=== PATIENT | female | born 1945 | race Caucasian/White ===

== ENCOUNTER 2017-01-13 09:19 | Inpatient (IN) ==
--- NOTE | 2017-01-13 10:01 | Emergency Department Note ---
Sherie Rankin Hilary, am scribing for, and in the presence of, Marlon Martinez MD 09: 51. Michelle Rankin James D, MD, personally performed the services described in this documentation, ascribed by Erlinda Rehman in my presence, and it is both accurate and complete . Arrival - Arrival Chief Complaint: Non-Specific Stated Complaint: dialysis graft problem; no urinary output ED Nursing Triage Note: Pt arrived via ems with complaint of unable to walk, generalized weakness, and no urinary output. Pt reports near syncope episode. pt states she was just here 2 days ago and diagnosed with uti. Mode of Arrival: Stretcher Limitations: No Limitations Source: Patient, Family, RN Notes Reviewed Time Seen by Provider: 01/13/17 09:39 - History of Present Illness HPI Narrative: Pt is a 71 y/o white female brought into the ED via EMS for c/o weakness which onset 2 days ago. Pt was seen in the ED 2 days ago and diagnosed with a UTI. Pt states that both of her arms are going numb, she cant feel her fingertips and she cant pick up operator her legs. She confirms falling on the front porch 5 days ago, decreased urinary output and vomiting but denies injury. No other complaints or problems stated in the ED. Onset (ago): day(s) Consistency: constant Severity: mild Severity scale (1-10): 1 Quality: other (numbness) Allergies/Adverse Reactions: Allergies Allergy/AdvReac Type Severity Reaction Status Date / Time No Known Allergies Allergy Verified 01/11/17 16:15 Home Medications: Home Medications Medication Instructions Recorded Confirmed Type Albuterol Sulfate [Proair HFA] 2 puff INH Q4HR 03/25/16 07/24/16 History Glimepiride [Amaryl] 2 mg PO DAILY 03/25/16 07/24/16 History Ipratropium/Albuterol Inhaler 1 puff INH QID 03/25/16 07/24/16 History [Combivent Respimat Inhaler] amLODIPine [Norvasc] 10 mg PO DAILY 03/25/16 07/24/16 History HYDROcodone/ACETAMIN 7.5-325 1 tablet PO Q4H PRN #45 tablet 07/05/16 07/24/16 Rx [[place] 7.5-325] Calcitriol [Rocaltrol] 0.25 mcg PO DAILY #30 capsule 07/30/16 Rx Furosemide Tab [Lasix Tab] 80 mg PO BID DIURETIC #60 tablet 07/30/16 Rx Heparin Inj 2,000 unit IV WITH DIALYSIS PRN #0 07/30/16 Rx vial Levalbuterol Neb [Xopenex Neb] 0.63 mg RESP TX RT Q4H PRN #0 07/30/16 Rx Levalbuterol Neb [Xopenex Neb] 1.25 mg RESP TX RT Q6H #1 07/30/16 Rx applicator Losartan [Cozaar] 50 mg PO DAILY #30 tablet 07/30/16 Rx Pravastatin [Pravachol] 20 mg PO BEDTIME #30 tablet 07/30/16 Rx Tiotropium Inhalation [Spiriva 18 mcg INH DAILY #1 07/30/16 07/24/16 Rx Handihaler] Amoxicillin/Clav Tab [Augmentin 875 mg PO BID #20 tablet 01/11/17 Rx Tab] Meclizine [Antivert] 25 mg PO QID PRN #20 tablet 01/11/17 Rx Review of System - Review of System 12 point system: reviewed and no additional remarkable complaints except as stated - Review of System Constitutional: Present: weakness. Absent: fever Gastrointestinal: Present: nausea, vomiting Genitourinary female: Absent: other (decreased urine output) Neurological: Present: weakness, other (numbness in both arms and legs) Medical,Surgical,& Family Hx - Medical History Cardio: History of: Hypertension No history of: CHF, [place] Psychological: History of: Depression, Psychiatric Problems (Panic attacks) Neurology: No history of: Brain Aneurysm, Cerebrovascular Accident, Seizures HEENT: History of: Eye Problem (had cataract surgery left and right eye) Endocrine: History of: Diabetes Mellitus (NIDDM) Rheumatology: History of;: Rheumatoid Arthritis Respiratory: History of: COPD, Obstructive Sleep Apnea, Pneumonia Renal: History of: Renal Problems Gastrointestinal: History of: GERD No history of: Bowel Obstruction, Clostridium Difficile, Crohn's Disease, Diverticulitis/ Diverticulosis, Esophageal Varices, Hemorrhoids, Hepatitis, Liver Problems, Ulcerative Colitis Other: History of: Skin Problems No history of: Anaphylaxis, Cancer - Surgical History Thoracic Surgeries: Patient denies;: Organ Transplant Neurologic Surgeries: Patient denies: Brain Aneurysm Abdominal Surgeries: Surgical HX of: Abdominal Surgery (25 years ago), Colonoscopy, Hernia Repair (25 years ago) Reproductive Surgeries: Surgical HX of;: Hysterectomy (1974) Patient denies;: Section Orthopedic Surgeries: Patient denies;: Total Hip Replacement, Total Knee Replacement - Family History Family History: Reports;: Family Cancer (brother), Family Diabetes (mother), Family Hypertension (mother) Denies;: Family Anesthesia Reaction, Family Heart Disease, Family Psychiatric Problems, Family Stroke - Social History Smoking Status: Never smoker Frequency of Alcohol Use: None Type of Drug Use: None Exam Physical Examination: GENERAL: This is a well-nourished, well-developed in no apparent distress. VITAL SIGNS: Temperature: 98.0 Pulse: 75 Respiratory: 15 Blood Pressure: 152/ 75 O2 Sat: 100 HEENT: Head is normocephalic and atraumatic. Pupils are equally round and reactive to light. Extraocular movement are intact. Oropharynx is benign with moist mucous membranes. Abrasion overlying the left TMJ area. NECK: Neck is soft and supple without tenderness. There are no masses. There is no lymphadenopathy. LUNGS: Lungs are clear to auscultation bilaterally. Chest rises symmetrically. There is no chest wall tenderness. CV: Heart is regular rate and rhythm without murmurs, rubs, or gallops. ABDOMEN: Abdomen is soft, non-tender to palpation. There are no abnormal masses palpated. There is no organomegaly. Bowel sounds are present and active. SKIN: Skin is warm and dry. No rash. EXTREMITIES: Patient has full range of motion without tenderness. There is no pedal edema. NEUROLOGIC: Awake, alert, and oriented x4. Cranial nerves II through XII are grossly intact. Motor function is 3/5-4/5 in all extremities. Deep tendon reflexes are 2+ and bilaterally equal. PSYCHIATRIC: Normal affect. Normal mood. Vital Signs: Vital Signs Temperature 98.0 F 01/13/17 09:20 Pulse Rate 65 01/13/17 13:30 Respiratory Rate 16 01/13/17 13:30 Blood Pressure 125/69 01/13/17 13:30 O2 Sat by Pulse Oximetry 100 01/13/17 13:30 Course - Consultations Consultation #1: Discussed with hospitalist. Patient will be admitted to their service. Time: 13:21 Results - Labs CBC & BMP: 01/13/17 10:13 01/13/17 10:13 Lab Results: I have reviewed the patients labs Labs: Laboratory Tests 01/13/17 10:13 Sodium 137 Potassium 3.7 Chloride 97 L Carbon Dioxide 28 Anion Gap 15.7 H BUN 51 H Creatinine 8.30 H Calcium 8.3 L - Diagnostic Findings Procedure: CT: report reviewed by me (HEAD: No acute intracranial abnormality demonstrated. Probable chronic microvascular ischemic change and colume loss. Chronic right maxillary sinus disease. FACIAL BONES: No acute facial bone fracture demonstrated), MRI: pending, report reviewed by me (Scans are degraded by motion artifact. 1.6mm anterolisthesis of C4 relationship to C5. No definite fracture is identified. This finding is probably consistent with the multilevel DDD as above. No definite spinal cord pathology is identified. 12mm Tornwaldt cyst. ) Disposition Clinical Impression: Generalized weakness, Multiple falls, End-stage renal disease on hemodialysis Case discussed with: patient Disposition: Still a Patient Condition: Stable
[2017-01-13 10:24] LABS: Basophils # 0.1 10*3/uL (0.0-0.2); Basophils % 0.6 % (0.0-0.8); Eosinophils # 0.2 10*3/uL (0.0-0.87); Eosinophils % 2.3 % (0.00-10.9); Hematocrit 36.7 VOL% (35.7-47.0); Hemoglobin 12.5 GM/DL (12.0-16.0); Immature Granulocytes % 0.3 %; Immature Granulocytes Absolute 0.03 #; Lymphocytes # 2.5 10*3/uL (1.4-4.0); Lymphocytes % 25.1 % (21.3-54.2); Mean Corpuscular HGB Conc 34.1 GM/DL (32-36); Mean Corpuscular Hemoglobin 30 PG (27-34); Mean Corpuscular Volume 88.2 FL (87-102); Mean Platelet Volume 10.1 FL (9.6-12.0); Monocytes # 0.8 10*3/uL (0.11-0.8); Monocytes % 7.9 % (1.7-12.7); Neutrophils # 6.4 10*3/uL (1.4-7.4); Neutrophils % 63.8 % (38.7-73.9); Platelet Count 190 T/CUMM (130-400); Red Blood Count 4.16 MC/CUMM (3.8-5.5); Red Cell Distribution Width 17.2 % (9.3-17.3); White Blood Count 10.1 T/CUMM (4-12)
--- NOTE | 2017-01-13 10:26 | CT Report ---
CT head/brain wo con Indication: Fall, head injury Comparison: CT brain dated January 11, 2017 Technique: Multiple axial tomographic images of the brain were obtained without the use of intravenous contrast. Findings: Midline structures are nondisplaced. There is no convincing evidence of acute intracranial hemorrhage . Moderate global volume loss present. Moderate periventricular and subcortical hypoattenuation noted which is nonspecific but consistent with chronic microvascular ischemic change. Demyelinating process and vasculitis less likely considerations. Chronic complete opacification of the right maxillary sinus with changes of chronic osteitis. Atherosclerotic calcifications demonstrated. IMPRESSION: No acute intracranial abnormality demonstrated. Probable chronic microvascular ischemic change and volume loss. Chronic right maxillary sinus disease. The CT exam was performed using one or more of the following dose reduction techniques: Automated exposure control, adjustment of the mA and/or kV according to patient size, or use of iterative reconstruction technique. PROCEDURE INTERPRETED AT [facility] DEPARTMENT OF RADIOLOGY Final Report Signed by: Dr Josue Anguiano
--- NOTE | 2017-01-13 10:29 | CT Report ---
CT facial bones wo con Indication: Left jaw pain status post fall Comparison: None Technique: Multiple axial tomographic images of the facial bones were obtained without the use of intravenous contrast. Coronal and sagittal reformatted images provided. Findings: Diffuse osteopenia. Chronic complete opacification the right maxillary sinus with chronic osteitis. No acute facial bone fracture. IMPRESSION: No acute facial bone fracture demonstrated. Chronic right maxillary sinus disease. The CT exam was performed using one or more of the following dose reduction techniques: Automated exposure control, adjustment of the mA and/or kV according to patient size, or use of iterative reconstruction technique. PROCEDURE INTERPRETED AT [facility] DEPARTMENT OF RADIOLOGY Final Report Signed by: Dr Josue Anguiano
--- NOTE | 2017-01-13 10:35 | CT Report ---
Exam: CT cervical spine without contrast Date: 01/13/2017 Comparison: 01/11/2017 Reason: Fall with upper and lower extremity numbness, neck trauma Technique: Axial images of the cervical spine were obtained without the use of contrast. Sagittal and coronal reformatted images were also acquired. Total DLP is 342.20 mGy*cm. Findings: 2.2 mm anterolisthesis of C4 relationship to C5 compared to 1.6 mm on the previous exam. The scans are more degraded by motion artifact but no definite fracture or spinal cord pathology identified. Sclerosis with osteophytes. No acute findings at the lung apices. Vascular calcifications with aberrant right subclavian artery. Persistent diffuse enlargement of the thyroid gland. At C2-C3, no neuroforaminal narrowing or spinal canal stenosis is identified. At C3-C4, no disc protrusion or spinal stenosis with moderate left foraminal stenosis. At C4-C5, osteophyte/disc complex which contacts the thecal sac. No spinal stenosis with moderate left foraminal stenosis. At C5-C6, osteophyte/disc complex which contacts the thecal sac. No spinal stenosis with minimal left foraminal stenosis. At C6-C7, no neuroforaminal narrowing or spinal canal stenosis is identified. At C7-T1, no neuroforaminal narrowing or spinal canal stenosis is identified. Impression: Unfortunately the scans are more degraded by motion artifact. 2.2 mm anterolisthesis of C4 relationship to C5 compared to 1.6 mm on the previous exam. This finding could be related to the multilevel DDD. It is difficult to exclude possible ligamentous injury. If symptoms persist, MRI may be helpful for further evaluation. This CT exam was performed using one or more of the following dose reduction techniques: Automatic exposure control, adjustment of the MA and/or KV according to patient size, or use of iterative reconstruction technique. PROCEDURE INTERPRETED AT [facility] DEPARTMENT OF RADIOLOGY Final Report Signed by: Dr. Sierra Berumen
[2017-01-13 10:47] LABS: Calcium 8.3 MG/DL (8.5-10.1); Osmolality,Calculated 286.8 MOS/KG (273-304); Potassium 3.7 MMOL/L (3.5-5.1)
--- NOTE | 2017-01-13 12:54 | Magnetic Resonance Report ---
MRI of the cervical spine without contrast. Technique: Sagittal T2, sagittal T2 fat-sat, sagittal T1, axial T2 and axial gradient echo sequences of the cervical spine were performed without contrast. Scans were obtained on a 1.5 Iza magnet. Clinical history: Recent fall with upper and lower extremity numbness, abnormal CT Comparison: CT cervical spine 01/13/2017, 01/11/2017 Findings: Motion artifact limits the exam. 1.6 mm anterolisthesis of C4 relationship to C5. No acute fracture or obvious ligamentous injury is identified. No definite spinal cord pathology is noted. 12 mm nasopharyngeal cyst. Degenerative changes are noted with diffuse disc degeneration. The craniocervical junction is unremarkable. C2-3: No disc protrusion, spinal stenosis, or foraminal stenosis. C3-4: No disc protrusion, spinal or spinal stenosis with moderate left foraminal stenosis. C4-5: Diffuse osteophyte/disc complex which contacts the thecal sac. No spinal stenosis with moderate left foraminal stenosis. C5-6: Osteophyte/disc complex which contacts the thecal sac. No spinal stenosis with minimal left foraminal stenosis. C6-7: No disc protrusion, spinal stenosis, or foraminal stenosis. C7-T1: No disc protrusion, spinal stenosis, or foraminal stenosis. Impression: Unfortunately the scans are degraded by motion artifact. 1.6 mm anterolisthesis of C4 relationship to C5. No definite fracture is identified. This finding is probably consistent with the multilevel DDD as above noted. No definite spinal cord pathology is identified. 12 mm Tornwaldt cyst. PROCEDURE INTERPRETED AT [facility] DEPARTMENT OF RADIOLOGY Final Report Signed by: Dr. Sierra Berumen
[2017-01-13] MEDS ORDERED: ONDANSETRON 4 MG/2 ML VIAL IV PRN (13:50)
[2017-01-13] MEDS ORDERED: ACETAMINOPHEN 325 MG TABLET PO PRN (13:50)
[2017-01-13] MEDS ORDERED: MORPHINE 2 MG/1 ML SYRINGE IV PRN (13:50)
[2017-01-13] MEDS: ALBUTEROL 1.25 MG/3 ML NEB RESP TX SCH ×3 (14:00→23:45)
[2017-01-13] MEDS ORDERED: GLUCAGON 1 MG VIAL IM PRN (14:17)
[2017-01-13] MEDS ORDERED: DEXTROSE 50% 25 GM/50 ML SYRINGE IV PRN (14:17)
--- NOTE | 2017-01-13 14:24 | Hospitalist History & Physical ---
<Guru Rodriguez - Last Filed: 01/13/17 14:56> Assessment and Plan (1) End-stage renal disease on hemodialysis Status: Acute Assessment and plan: Patient scheduled for hemodialysis on Monday and Monday. She reports last hemodialysis treatment on Monday of this week. We will consult nephrology to assist in the management of the patient's hemodialysis during the clinical encounter. Current Visit: Yes (2) Generalized weakness Status: Acute Assessment and plan: Upon interview, the family reported multiple falls in recent months. They report that the patient sustained her most recent fall on Monday. In addition, they report that the patient has profound weakness to both her upper and lower torso. The patient's strength is rated 2/5 in both lower upper and lower extremity. We will consult physical and Occupational Therapy to evaluate and assist during the clinical encounter. Current Visit: Yes (3) Hypertension Problem details: Controlled on current regimen. Continue. Status: Chronic Assessment and plan: Upon review of the patient's medical record, the patient had been previously seen in the ED on yesterday for the same complaints. During that encounter the patient was noted to be hypotensive. The patient's medications have been reviewed. Blood pressure parameters have been given. We will monitor blood pressures closely during the clinical encounter. Current Visit: No (4) Transient confusion Status: Acute Assessment and plan: The family reported a gradual change in patient's mental status in recent months. They reported that the patient has been "slipping in recent months". In addition, they report that the patient's mental status has worsened since her fall on Monday. The patient was recently seen in the ED on yesterday for a fall. The patient was subsequently diagnosed with urinary tract infection and empiric antibiotic coverage was initiated. At that time, the patient was advised to stay for further evaluation however, the patient refused. CT head, face, neck were essentially unremarkable. MRI was obtained this morning in the ED which was essentially unremarkable also. Upon review of the patient's medication, the patient was noted to have several agents that could possibly attribute to confusion. We will hold all potentially sedative agents. We will consult neurology to evaluate. Per family report the patient's baseline is moderately confused. Current Visit: No History of Present Illness Chief complaint: Generalized weakness History of present illness: This is a chronically ill 71-year-old female that presented to the ED at [facility] via EMS this morning for the evaluation of generalized weakness. The patient has a medical history significant for hypertension, [id number] diabetes mellitus, chronic obstructive pulmonary disease, depression, panic attacks, rheumatoid arthritis, obstructive sleep apnea, pneumonia, and gastroesophageal reflux disease. Patient has a surgical history significant for colonoscopy, hernia repair, and hysterectomy. The patient reported the onset of symptoms 2 days prior to presentation. Upon review of the medical record, the patient had a recent encounter for the above complaints on yesterday in which she was evaluated advised that she needs to be admitted and refused inpatient admission. The daughter is present at bedside and served as historian during the history taking session. Per daughter report, the patient has sustained multiple falls in recent weeks. She reports that the patient has experienced a gradual change in her mental status in recent months however, the patient's mental status has become worse in recent days. The patient currently undergoes dialysis for end-stage renal disease at a dialysis center in [facility]. The daughter reported that the patient had finished her dialysis treatment 2 days ago and started experiencing some dizziness. The daughter alerted the dialysis staff who then in turn suggested that she take her mother to the ED for further evaluation. On yesterday, the daughter reported that she transported the patient to [place] for evaluation of her AV fistula. She reported that the patient generally voids however the did not avoid any on yesterday. She became alarmed and called for EMS for emergency assistance. She reported that the patient failed to void throughout the night however reported a very small amount prior to EMS presentation. The patient was subsequently transferred to [facility] for continuation of care. The patient was assessed at the time of ED encounter. Chloride 97, BUN 51, creatinine 8.30, hemoglobin A1c 7.1, calcium 8.3, triglycerides 180, cholesterol 229. CT face, cervical spine, and he was essentially unremarkable. MRI of the cervical spine reported 1.6 mm anterolisthesis of C4 relationship to C5 however no definite fracture was identified. After brief discussion with both Dr. Martinez and Dr. Miller, the patient will be admitted to the hospitalist service for continuation of care. Home medications have been reviewed and reconciled. CODE STATUS discussed; patient is FULL CODE. Home Medications Medication Instructions Recorded Confirmed Type Albuterol Sulfate [Proair HFA] 2 puff INH Q4HR 03/25/16 01/13/17 History Glimepiride [Amaryl] 2 mg PO DAILY 03/25/16 01/13/17 History Ipratropium/Albuterol Inhaler 1 puff INH QID 03/25/16 01/13/17 History [Combivent Respimat Inhaler] amLODIPine [Norvasc] 10 mg PO DAILY 03/25/16 01/13/17 History Calcitriol [Rocaltrol] 0.25 mcg PO DAILY #30 capsule 07/30/16 01/13/17 Rx Furosemide Tab [Lasix Tab] 80 mg PO BID DIURETIC #60 tablet 07/30/16 01/13/17 Rx Levalbuterol Neb [Xopenex Neb] 0.63 mg RESP TX RT Q4H PRN #0 07/30/16 01/13/17 Rx Levalbuterol Neb [Xopenex Neb] 1.25 mg RESP TX RT Q6H #1 07/30/16 01/13/17 Rx applicator Pravastatin [Pravachol] 20 mg PO BEDTIME #30 tablet 07/30/16 01/13/17 Rx Tiotropium Inhalation [Spiriva 18 mcg INH DAILY #1 07/30/16 01/13/17 Rx Handihaler] Meclizine [Antivert] 25 mg PO QID PRN #20 tablet 01/11/17 01/13/17 Rx Amoxicillin Cap/Tab 250 mg PO BID 01/13/17 01/13/17 History Calcium Acetate [Phoslo] 1,334 mg PO TID W/MEALS 01/13/17 01/13/17 History Lidocaine/Prilocaine Cream [Emla] 1 applic TOP DAILY 01/13/17 01/13/17 History Montelukast Sodium 10 mg PO DAILY 01/13/17 01/13/17 History Prorenal D 1 tablet PO DAILY 01/13/17 01/13/17 History Tramadol HCl [Tramadol Tab] 50 mg PO BID PRN 01/13/17 01/13/17 History Valsartan [Diovan] 160 mg PO DAILY 01/13/17 01/13/17 History Allergies Allergy/AdvReac Type Severity Reaction Status Date / Time No Known Allergies Allergy Verified 01/11/17 16:15 Medical,Surgical,& Family Hx - Medical History Cardio: History of: Hypertension No history of: CHF, [place] Psychological: History of: Depression, Psychiatric Problems (Panic attacks) Neurology: No history of: Brain Aneurysm, Cerebrovascular Accident, Seizures HEENT: History of: Eye Problem (had cataract surgery left and right eye) Endocrine: History of: Diabetes Mellitus (NIDDM) Rheumatology: History of;: Rheumatoid Arthritis Respiratory: History of: COPD, Obstructive Sleep Apnea, Pneumonia Renal: History of: Renal Problems Gastrointestinal: History of: GERD No history of: Bowel Obstruction, Clostridium Difficile, Crohn's Disease, Diverticulitis/ Diverticulosis, Esophageal Varices, Hemorrhoids, Hepatitis, Liver Problems, Ulcerative Colitis Other: History of: Skin Problems No history of: Anaphylaxis, Cancer - Surgical History Thoracic Surgeries: Patient denies;: Organ Transplant Neurologic Surgeries: Patient denies: Brain Aneurysm Abdominal Surgeries: Surgical HX of: Abdominal Surgery (25 years ago), Colonoscopy, Hernia Repair (25 years ago) Reproductive Surgeries: Surgical HX of;: Hysterectomy (1974) Patient denies;: Section Orthopedic Surgeries: Patient denies;: Total Hip Replacement, Total Knee Replacement - Family History Family History: Reports;: Family Cancer (brother), Family Diabetes (mother), Family Hypertension (mother) Denies;: Family Anesthesia Reaction, Family Heart Disease, Family Psychiatric Problems, Family Stroke - Social History Smoking Status: Never smoker Frequency of Alcohol Use: None Type of Drug Use: None Exam - Constitutional Vitals: Period Temp Pulse Resp BP Sys/Wang Pulse Ox Last 24 Hr 98.0 F-98.0 F 65-75 15-20 125-171/60-80 98-100 General appearance: normal weight - Head Head exam: Present: normal inspection, normocephalic, atraumatic - Eye Eye exam: Present: EOMI. Absent: conjunctival injection Pupils: Present: THIAGO, normal accommodation - ENT ENT exam: Present: normal exam, normal external ear exam, normal oropharynx - Neck Neck exam: Present: normal inspection. Absent: lymphadenopathy, meningismus, tenderness, thyromegaly - Respiratory Respiratory exam: Present: clear to auscultation bilaterally. Absent: rales, rhonchi, stridor, wheezes - Cardiovascular Cardiovascular exam: Present: regular rate and rhythm. Absent: carotid bruit, diastolic murmur, gallop, JVD, rubs, systolic murmur - GI/Abdominal GI/Abdominal exam: Present: normal bowel sounds, soft - Extremities Exam Extremities exam: Present: normal inspection, other (AV fistula noted to right lower arm positive bruit positive thrill noted) - Back Exam Back exam: Present: normal inspection - Neurological Exam Neurological exam: Present: alert, altered, other (Profound weakness noted to upper and lower extremity) - Psychiatric Psychiatric exam: Present: flat affect - Skin Skin exam: Present: normal color, warm, dry Results - Labs CBC & BMP: 01/13/17 10:13 01/13/17 10:13 Lab Results: I have reviewed the past 24 hour labs <Emily Miller - Last Filed: 01/14/17 07:36> History of Present Illness History of present illness: Ms. Reddy is a 71 year old female with multiple medical medical issues who presents with recurrent syncope most especially after she has her hemodialysis session. She states that her Data Warehousing Architect has been working on the amount of fluid to be taken out during dialysis /dry weight.We will admit and work her up for syncope and Neuro will see as well. I saw, examined and discussed with DATA GOVERNANCE CONSULTANT.Continue with current management. Exam - Constitutional Vitals: Period Temp Pulse Resp BP Sys/Wang Pulse Ox Last 24 Hr 97.6 F-98.4 F 65-84 14-25 107-173/60-87 94-100 Results - Labs CBC & BMP: 01/14/17 06:05 01/14/17 06:05
[2017-01-13 15:01] LABS: Risk Ratio 4.58
--- NOTE | 2017-01-13 15:30 | Ultrasound Report ---
Exam: Carotid ultrasound Date: 01/13/2017 Comparison: None Technique: Duplex scans of the carotid and vertebral arteries using B-mode/Rg scale imaging and Doppler spectral analysis and color flow. Reason: Syncope Findings: The right ICA measures 5.7 mm in diameter and the left ICA measures 6.6 mm in diameter. Color-flow documented in the visualized arteries. The peak systolic velocities are as follows: Right CCA: 62.5 Right ICA: 75.8 Right ECA:127.6 Left CCA: 59.0 Left ICA: 131.3 Left ECA: 120.0 The peak systolic ICA/CCA velocity ratios are as follows: 1.2 on the right and 2.2 on the left. Antegrade flow is present in both vertebral arteries. Impression:[Less than 50% stenosis in both internal carotid arteries with heterogeneous plaque formation. Antegrade flow in both vertebral arteries.] The Society of Radiologists in Ultrasound consensus conference criteria was used. The Ultrasound images were captured and stored. PROCEDURE INTERPRETED AT [facility] DEPARTMENT OF RADIOLOGY Final Report Signed by: Dr. Sierra Berumen
[2017-01-13] MEDS: INSULIN REGULAR 100 UNIT/ML SUBCUT SCH ×2 (16:19→21:08)
[2017-01-13] MEDS: FUROSEMIDE 80 MG TABLET PO SCH (17:06)
[2017-01-13 17:31] LABS: Hepatitis A Ab IgM Quant 0.14 Index; Hepatitis A Ab IgM Result Negative (Negative); Hepatitis B Core IgM Quant < 0.05 Index; Hepatitis B Core IgM Result Negative (Negative); Hepatitis B Surface Ag Quant 0.33 Index; Hepatitis B Surface Ag Result Negative (Negative); Hepatitis C Virus Ab Quant 0.03 Index; Hepatitis C Virus Ab Result Negative (Negative)
[2017-01-13] MEDS ORDERED: PRAVASTATIN 20 MG TABLET PO SCH (21:00)
[2017-01-13] MEDS: DOCUSATE SODIUM 100 MG CAPSULE PO SCH (21:08)
[2017-01-14] MEDS: ALBUTEROL 1.25 MG/3 ML NEB RESP TX SCH ×6 (03:14→23:53)
[2017-01-14 06:47] LABS: Basophils # 0.1 10*3/uL (0.0-0.2); Basophils % 0.7 % (0.0-0.8); Eosinophils # 0.3 10*3/uL (0.0-0.87); Eosinophils % 3.7 % (0.00-10.9); Hemoglobin 11.5 GM/DL (12.0-16.0); Immature Granulocytes % 0.4 %; Immature Granulocytes Absolute 0.04 #; Lymphocytes # 2.6 10*3/uL (1.4-4.0); Lymphocytes % 28.6 % (21.3-54.2); Mean Corpuscular HGB Conc 32.9 GM/DL (32-36); Mean Corpuscular Hemoglobin 30 PG (27-34); Mean Corpuscular Volume 90.2 FL (87-102); Monocytes # 0.8 10*3/uL (0.11-0.8); Monocytes % 9.3 % (1.7-12.7); Neutrophils # 5.2 10*3/uL (1.4-7.4); Neutrophils % 57.3 % (38.7-73.9); Platelet Count 191 T/CUMM (130-400); Red Blood Count 3.88 MC/CUMM (3.8-5.5); Red Cell Distribution Width 17.1 % (9.3-17.3)
[2017-01-14 07:15] LABS: Bilirubin,Total 0.6 MG/DL (0.2-1.0); Calcium 7.7 MG/DL (8.5-10.1); Magnesium 2.6 MG/DL (1.8-2.4); Osmolality,Calculated 292.5 MOS/KG (273-304); Potassium 4.2 MMOL/L (3.5-5.1); Total Protein 6.7 G/DL (6.4-8.3)
[2017-01-14] MEDS: IPRATROPIUM 500 MCG/2.5 ML NEB RESP TX SCH ×4 (07:24→18:56)
[2017-01-14] MEDS: INSULIN REGULAR 100 UNIT/ML SUBCUT SCH ×4 (08:28→20:32)
[2017-01-14] MEDS: GLIMEPIRIDE 2 MG TABLET PO SCH (08:28)
[2017-01-14] MEDS: PANTOPRAZOLE 40 MG TABLET PO SCH (08:30)
[2017-01-14] MEDS: CALCITRIOL 0.25 MCG CAPSULE PO SCH (08:30)
[2017-01-14] MEDS: amLODIPine 10 MG TABLET PO SCH (08:30)
[2017-01-14] MEDS: FUROSEMIDE 80 MG TABLET PO SCH ×2 (08:30→18:06)
[2017-01-14] MEDS: DOCUSATE SODIUM 100 MG CAPSULE PO SCH ×2 (08:30→20:32)
[2017-01-14] MEDS: LOSARTAN 50 MG TABLET PO SCH (08:30)
--- NOTE | 2017-01-14 09:52 | XRay Report ---
XR chest 1V portable Indication: Shortness of breath. Chest one view: Comparison 3 days earlier. Heart size remains normal with a normal mediastinal contour. Chronic interstitial scarring of the central lungs again shown. No new infiltrates. Pleural spaces remain clear. Impression: No change from 3 days earlier. PROCEDURE INTERPRETED AT [facility] DEPARTMENT OF RADIOLOGY Final Report Signed by: Manpreet Maharaj M.D.
--- NOTE | 2017-01-14 10:04 | Nephrology Consult Note ---
History of Present Illness Chief complaint: Frequent falls in a dialysis patient History of present illness: Ms. Reddy is a 71 year old female with end-stage renal disease who dialyzes on a Monday basis in [facility]. The patient states she came to the hospital due to frequent falls this week. The patient had fallen a couple of times earlier in the week hitting her head. The patient states she gets very weak and falls all the time after dialysis. The patient has a history of hypertension and takes 2 antihypertensives as well as a diuretic. The patient denies any history of stroke. She states she has been weak for a couple of months now. She also usually walks with a walker. The patient dialyzes on a Monday basis, she dialyzes for 4 hours. ROS: Head -positive headaches ENT -positive sore throat Lymphatics - denies lymphadenopathy Hematology - denies bleeding problems Heart - denies chest pain Lungs -positive shortness of breath since suffering some aspiration pneumonia in her remote past Abdomen - denies abdominal pain Musculoskeletal -positive arthritis Skin - denies rash Neurology - denies stroke General - denies fever PE: General: in no acute distress Eyes: Pupils are round and reactive, conjunctivae are clear ENT: Nose is clear, O/P is benign Neck: Supple, no thyromegaly Lymphatics: No cervical, supraclavicular or axillary adenopathy Heart: Regular rate and rhythm, no edema Lungs: Clear to auscultation anteriorly, chest expansion symmetric Abdomen: Soft, normoactive bowel sounds, no hepatomegaly Musculoskeletal: No joint erythema or effusions or joint asymmetry Skin: Normal turgor, normal hydration, no rash Neuro/Psych: Alert and cooperative with fair insight Home Medications Medication Instructions Recorded Confirmed Type Albuterol Sulfate [Proair HFA] 2 puff INH Q4HR 03/25/16 01/13/17 History Glimepiride [Amaryl] 2 mg PO DAILY 03/25/16 01/13/17 History Ipratropium/Albuterol Inhaler 1 puff INH QID 03/25/16 01/13/17 History [Combivent Respimat Inhaler] amLODIPine [Norvasc] 10 mg PO DAILY 03/25/16 01/13/17 History Calcitriol [Rocaltrol] 0.25 mcg PO DAILY #30 capsule 07/30/16 01/13/17 Rx Furosemide Tab [Lasix Tab] 80 mg PO BID DIURETIC #60 tablet 07/30/16 01/13/17 Rx Levalbuterol Neb [Xopenex Neb] 0.63 mg RESP TX RT Q4H PRN #0 07/30/16 01/13/17 Rx Levalbuterol Neb [Xopenex Neb] 1.25 mg RESP TX RT Q6H #1 07/30/16 01/13/17 Rx applicator Pravastatin [Pravachol] 20 mg PO BEDTIME #30 tablet 07/30/16 01/13/17 Rx Tiotropium Inhalation [Spiriva 18 mcg INH DAILY #1 07/30/16 01/13/17 Rx Handihaler] Meclizine [Antivert] 25 mg PO QID PRN #20 tablet 01/11/17 01/13/17 Rx Amoxicillin Cap/Tab 250 mg PO BID 01/13/17 01/13/17 History Calcium Acetate [Phoslo] 1,334 mg PO TID W/MEALS 01/13/17 01/13/17 History Lidocaine/Prilocaine Cream [Emla] 1 applic TOP DAILY 01/13/17 01/13/17 History Montelukast Sodium 10 mg PO DAILY 01/13/17 01/13/17 History Prorenal D 1 tablet PO DAILY 01/13/17 01/13/17 History Tramadol HCl [Tramadol Tab] 50 mg PO BID PRN 01/13/17 01/13/17 History Valsartan [Diovan] 160 mg PO DAILY 01/13/17 01/13/17 History Allergies Allergy/AdvReac Type Severity Reaction Status Date / Time No Known Allergies Allergy Verified 01/11/17 16:15 Medical,Surgical,& Family Hx - Medical History Cardio: History of: Hypertension No history of: CHF, [place] Psychological: History of: Depression, Psychiatric Problems (Panic attacks) No history of: Anxiety Disorders, ADHD, Behavior Problems Neurology: No history of: Brain Aneurysm, Cerebrovascular Accident, Seizures HEENT: History of: Eye Problem (had cataract surgery left and right eye) Endocrine: History of: Diabetes Mellitus (NIDDM) Rheumatology: History of;: Rheumatoid Arthritis Respiratory: History of: COPD, Obstructive Sleep Apnea, Pneumonia Renal: History of: Renal Problems Gastrointestinal: History of: GERD No history of: Bowel Obstruction, Clostridium Difficile, Crohn's Disease, Diverticulitis/ Diverticulosis, Esophageal Varices, Hemorrhoids, Hepatitis, Liver Problems, Ulcerative Colitis Other: History of: Skin Problems No history of: Anaphylaxis, Cancer - Surgical History Thoracic Surgeries: Patient denies;: Organ Transplant Neurologic Surgeries: Patient denies: Brain Aneurysm Abdominal Surgeries: Surgical HX of: Abdominal Surgery (25 years ago), Colonoscopy, Hernia Repair (25 years ago) Reproductive Surgeries: Surgical HX of;: Hysterectomy (1974) Patient denies;: Section Orthopedic Surgeries: Patient denies;: Total Hip Replacement, Total Knee Replacement - Family History Family History: Reports;: Family Cancer (brother), Family Diabetes (mother), Family Hypertension (mother) Denies;: Family Anesthesia Reaction, Family Heart Disease, Family Psychiatric Problems, Family Stroke - Social History Smoking Status: Never smoker Frequency of Alcohol Use: None Type of Drug Use: None Exam - Vital Signs Vital signs: Period Temp Pulse Resp BP Sys/Wang Pulse Ox Last 24 Hr 97.3 F-98.4 F 65-84 14-25 107-173/60-87 94-100 Results - Labs CBC & BMP: 01/14/17 06:05 01/14/17 06:05 Assessment and Plan (1) End-stage renal disease on hemodialysis Status: Acute Assessment and plan: We will continue hemodialysis, patient does make some urine, she may not need much pull on her dialysis. Current Visit: Yes (2) Generalized weakness Status: Acute Current Visit: Yes (3) Multiple falls Status: Acute Assessment and plan: Perhaps the patient is overmedicated with antihypertensives and diuretics and may also be getting pulled too hard on dialysis. Current Visit: Yes (4) Diabetes Status: Chronic Current Visit: No Qualifiers: Diabetes mellitus type: type 2 Diabetes mellitus complication status: with kidney complications Chronic kidney disease stage: on chronic dialysis (5) Hypertension Problem details: Controlled on current regimen. Continue. Status: Chronic Assessment and plan: We may do well to start backing off some of her antihypertensives and let her blood pressure drift up some in order to combat her frequent falls. Will observe how she does with dialysis today. Current Visit: No (6) Urinary tract infection Problem details: Not a true UTI (colony count <100K). Has finished enough antiobiotics for asymptomatic bactiuria. Stopped fortaz. Status: Resolved Current Visit: No
--- NOTE | 2017-01-14 11:01 | Hospitalist Progress Note ---
<Guru Rodriguez - Last Filed: 01/14/17 10:58> Assessment and Plan (1) End-stage renal disease on hemodialysis Status: Acute Assessment and plan: Patient scheduled for hemodialysis on Monday and Monday. She reports last hemodialysis treatment on Monday of this week. We will consult nephrology to assist in the management of the patient's hemodialysis during the clinical encounter. 01/14-hemodialysis schedule for this afternoon; nephrology to manage. Current Visit: Yes (2) Generalized weakness Status: Acute Assessment and plan: Upon interview, the family reported multiple falls in recent months. They report that the patient sustained her most recent fall on Monday. In addition, they report that the patient has profound weakness to both her upper and lower torso. The patient's strength is rated 2/5 in both lower upper and lower extremity. We will consult physical and Occupational Therapy to evaluate and assist during the clinical encounter. Current Visit: Yes (3) Hypertension Problem details: Controlled on current regimen. Continue. Status: Chronic Assessment and plan: Upon review of the patient's medical record, the patient had been previously seen in the ED on yesterday for the same complaints. During that encounter the patient was noted to be hypotensive. The patient's medications have been reviewed. Blood pressure parameters have been given. We will monitor blood pressures closely during the clinical encounter. Current Visit: No (4) Transient confusion Status: Acute Assessment and plan: The family reported a gradual change in patient's mental status in recent months. They reported that the patient has been "slipping in recent months". In addition, they report that the patient's mental status has worsened since her fall on Monday. The patient was recently seen in the ED on yesterday for a fall. The patient was subsequently diagnosed with urinary tract infection and empiric antibiotic coverage was initiated. At that time, the patient was advised to stay for further evaluation however, the patient refused. CT head, face, neck were essentially unremarkable. MRI was obtained this morning in the ED which was essentially unremarkable also. Upon review of the patient's medication, the patient was noted to have several agents that could possibly attribute to confusion. We will hold all potentially sedative agents. We will consult neurology to evaluate. Per family report the patient's baseline is moderately confused. 01/14-the patient remains confused; however she is oriented to person and place. She is unable to recall her reason for admission. We will obtain MRI of the brain without contrast to evaluate for possible infarct. In addition, neurology has been consulted. Current Visit: No Hospitalist: Subjective Interval history: Patient seen and examined chart reviewed. No significant overnight events reported per staff. Patient remains altered. Will order MRI and consult neurology. Exam - Constitutional Vitals: Period Temp Pulse Resp BP Sys/Wang Pulse Ox Last 24 Hr 97.3 F-98.4 F 65- 14- 107-173/61- 94-100 General appearance: normal weight, no acute distress - Head Head exam: Present: normal inspection, normocephalic - Eye Eye exam: Present: EOMI Pupils: Present: THIAGO, normal accommodation - ENT ENT exam: Present: normal exam, normal external ear exam, normal oropharynx - Neck Neck exam: Present: normal inspection. Absent: lymphadenopathy, meningismus, thyromegaly - Respiratory Respiratory exam: Present: decreased breath sounds, wheezes (Scattered) - Cardiovascular Cardiovascular exam: Present: regular rate and rhythm. Absent: carotid bruit, diastolic murmur, gallop, JVD, rubs, systolic murmur - GI/Abdominal GI/Abdominal exam: Present: normal bowel sounds, soft - Extremities Exam Extremities exam: Present: edema (+1 edema noted to bilateral lower extremity), other (AV fistula noted to right lower forearm positive bruit positive thrill) - Back Exam Back exam: Present: normal inspection - Neurological Exam Neurological exam: Present: alert, altered - Psychiatric Psychiatric exam: Present: normal affect, normal mood - Skin Skin exam: Present: normal color, warm, dry Results - Labs CBC & BMP: 01/14/17 06:05 01/14/17 06:05 Lab Results: I have reviewed the past 24 hour labs <Emily Miller - Last Filed: 01/14/17 11:54> Hospitalist: Subjective Interval history: Patient has been scheduled to have a session of dialysis and MRI of the brain today. She still feels weak.We will reduce Lasix to 40 bid,get Echo and cardiac enzymes. Appreciates Neurology's recommendations Exam - Constitutional Vitals: Period Temp Pulse Resp BP Sys/Wang Pulse Ox Last 24 Hr 97.3 F-98.4 F 65- 107-173/ 94-100 Results - Labs CBC & BMP: 01/14/17 06:05 01/14/17 06:05
[2017-01-14] MEDS ORDERED: LORazepam 2 MG/1 ML VIAL IV ONE (11:03)
--- NOTE | 2017-01-14 12:33 | Magnetic Resonance Report ---
MR head/brain wo con Indication: Altered mental status. MRI BRAIN WITHOUT CONTRAST Technique: Multiplanar noncontrast MR images of the brain were obtained. Comparison: None. Findings: Tiny focus of restricted diffusion involves the left thalamus with little associated T2 shine through. No other restricted diffusion shown. Generalized atrophy and extensive patchy periventricular white matter T2 and FLAIR hyperintensity noted in the deep white matter of both convexities. Some dilated perivascular spaces noted through the basal ganglia as well. No large areas of encephalomalacia. No mass or mass effect. No midline shift. Internal auditory canals are symmetric. Chronic mucosal thickening of the right maxillary sinus is present. The remainder paranasal sinuses appear clear. Orbits are symmetric. Impression: 1. Acute lacunar infarct left thalamus. 2. Generalized atrophy. Extensive T2 and FLAIR hyperintensity the deep white matter of both convexities consistent with chronic small vessel ischemic change. 3. Severe right chronic maxillary sinus disease. PROCEDURE INTERPRETED AT [facility] DEPARTMENT OF RADIOLOGY Final Report Signed by: Manpreet Maharaj M.D.
[2017-01-14] MEDS: ASPIRIN CHEW 81 MG TABLET PO SCH (12:57)
[2017-01-14] MEDS: ENOXAPARIN 30 MG/0.3 ML SYRINGE SUBCUT SCH (12:57)
[2017-01-14] MEDS ORDERED: ENOXAPARIN 40 MG/0.4 ML SYRINGE SUBCUT SCH (13:00)
--- NOTE | 2017-01-14 13:15 | Neurology Consult Note ---
History of Present Illness History of present illness: 71 years old right-handed white lady with past medical history significant for hypertension, [id number] diabetes, chronic obstructive pulmonary disease, panic attack, rheumatoid arthritis, IVIS, pneumonia, GERD admitted to the hospital with acute onset of right-sided weakness and more so of generalized weakness and some speech difficulties. Patient was not taking any kind of antiplatelet agents. MRI of the brain reveals acute left thalamic infarct. Lipid profile reveals high cholesterol and triglycerides.The daughter is present at bedside and served as historian during the history taking session. Per daughter report, the patient has sustained multiple falls in recent weeks. She reports that the patient has experienced a gradual change in her mental status in recent months however, the patient's mental status has become worse in recent days. The patient currently undergoes dialysis for end- stage renal disease at a dialysis center in [facility]. The baseline she walks with the help of a rolling walker. Carotid Dopplers are unremarkable. Home Medications Medication Instructions Recorded Confirmed Type Albuterol Sulfate [Proair HFA] 2 puff INH Q4HR 03/25/16 01/13/17 History Glimepiride [Amaryl] 2 mg PO DAILY 03/25/16 01/13/17 History Ipratropium/Albuterol Inhaler 1 puff INH QID 03/25/16 01/13/17 History [Combivent Respimat Inhaler] amLODIPine [Norvasc] 10 mg PO DAILY 03/25/16 01/13/17 History Calcitriol [Rocaltrol] 0.25 mcg PO DAILY #30 capsule 07/30/16 01/13/17 Rx Furosemide Tab [Lasix Tab] 80 mg PO BID DIURETIC #60 tablet 07/30/16 01/13/17 Rx Levalbuterol Neb [Xopenex Neb] 0.63 mg RESP TX RT Q4H PRN #0 07/30/16 01/13/17 Rx Levalbuterol Neb [Xopenex Neb] 1.25 mg RESP TX RT Q6H #1 07/30/16 01/13/17 Rx applicator Pravastatin [Pravachol] 20 mg PO BEDTIME #30 tablet 07/30/16 01/13/17 Rx Tiotropium Inhalation [Spiriva 18 mcg INH DAILY #1 07/30/16 01/13/17 Rx Handihaler] Meclizine [Antivert] 25 mg PO QID PRN #20 tablet 01/11/17 01/13/17 Rx Amoxicillin Cap/Tab 250 mg PO BID 01/13/17 01/13/17 History Calcium Acetate [Phoslo] 1,334 mg PO TID W/MEALS 01/13/17 01/13/17 History Lidocaine/Prilocaine Cream [Emla] 1 applic TOP DAILY 01/13/17 01/13/17 History Montelukast Sodium 10 mg PO DAILY 01/13/17 01/13/17 History Prorenal D 1 tablet PO DAILY 01/13/17 01/13/17 History Tramadol HCl [Tramadol Tab] 50 mg PO BID PRN 01/13/17 01/13/17 History Valsartan [Diovan] 160 mg PO DAILY 01/13/17 01/13/17 History Allergies Allergy/AdvReac Type Severity Reaction Status Date / Time No Known Allergies Allergy Verified 01/11/17 16:15 12 point system: reviewed and no additional remarkable complaints except as stated Medical,Surgical,& Family Hx - Medical History Cardio: History of: Hypertension No history of: CHF, [place] Psychological: History of: Depression, Psychiatric Problems (Panic attacks) No history of: Anxiety Disorders, ADHD, Behavior Problems Neurology: No history of: Brain Aneurysm, Cerebrovascular Accident, Seizures HEENT: History of: Eye Problem (had cataract surgery left and right eye) Endocrine: History of: Diabetes Mellitus (NIDDM) Rheumatology: History of;: Rheumatoid Arthritis Respiratory: History of: COPD, Obstructive Sleep Apnea, Pneumonia Renal: History of: Renal Problems Gastrointestinal: History of: GERD No history of: Bowel Obstruction, Clostridium Difficile, Crohn's Disease, Diverticulitis/ Diverticulosis, Esophageal Varices, Hemorrhoids, Hepatitis, Liver Problems, Ulcerative Colitis Other: History of: Skin Problems No history of: Anaphylaxis, Cancer - Surgical History Thoracic Surgeries: Patient denies;: Organ Transplant Neurologic Surgeries: Patient denies: Brain Aneurysm Abdominal Surgeries: Surgical HX of: Abdominal Surgery (25 years ago), Colonoscopy, Hernia Repair (25 years ago) Reproductive Surgeries: Surgical HX of;: Hysterectomy (1974) Patient denies;: Section Orthopedic Surgeries: Patient denies;: Total Hip Replacement, Total Knee Replacement - Family History Family History: Reports;: Family Cancer (brother), Family Diabetes (mother), Family Hypertension (mother) Denies;: Family Anesthesia Reaction, Family Heart Disease, Family Psychiatric Problems, Family Stroke - Social History Smoking Status: Never smoker Frequency of Alcohol Use: None Type of Drug Use: None Exam - Constitutional Vitals: Period Temp Pulse Resp BP Sys/Wang Pulse Ox Last 24 Hr 97.3 F-98.6 F 65-88 14-25 107-173/61-87 94-100 Exam: GENERAL: Patient is in no acute distress. NECK: Neck is supple. There is no JVD. No carotid bruits present. No thyroid masses. CVS: First and second heart sounds are normal. There is no S3 present. Regular rate and rhythm. RESPIRATORY: Lungs are clear to auscultation without any rales or rhonchi. ABDOMEN: Soft and non-tender. Bowel sounds are present. There is no hepatosplenomegaly. EXT: There is no palpable edema. Peripheral pulses are present. Skin: No rashes Central Nervous system: General: Alert, awake and Oriented Speech: Fluent Comprehension: Intact and normal Facial expressions: Normal Cranial Nerves: CN1/Olfactory: Normal CN II/ Optic: Normal, Visual Billingsley unreliable CN III, and : THIAGO & EOMI CN V: Normal & intact CN VII: face is symmetric CNVIII: Normal CN XI/X/XI/XII: Intact and Normal Motor: Bulk and Tone is normal. Strength in the right 3/5 Strength in the left 5/5 Sensory: Decreased for all the modalities of PP, LT and temp sense Reflexes: 1+ and symmetrical Cerebellar function: Normal finger to nose and heel to hollis testing. Toes: Equivocal Gait: Not tested at this Results - Labs CBC & BMP: 01/14/17 06:05 01/14/17 06:05 Assessment and Plan (1) Acute CVA (cerebrovascular accident) Status: Acute Assessment and plan: Agree with aspirin a day Consult TMR Current Visit: Yes (2) Hypertension Problem details: Controlled on current regimen. Continue. Status: Chronic Assessment and plan: Continue current medications. Check vitals per routine. Current Visit: No (3) Diabetes Status: Chronic Assessment and plan: Continue Accu-Cheks with a sliding scale coverage. Current Visit: No Qualifiers: Diabetes mellitus type: type 2 Diabetes mellitus complication status: with kidney complications Chronic kidney disease stage: on chronic dialysis (4) End-stage renal disease on hemodialysis Status: Acute Assessment and plan: Continue dialysis as per nephrology recommendations. Current Visit: Yes
[2017-01-14] MEDS ORDERED: PRAVASTATIN 40 MG TABLET PO SCH (13:17)
[2017-01-14 13:28] LABS: Troponin I Only < 0.015 NG/ML (0.00-0.045)
--- NOTE | 2017-01-14 14:36 | Dialysis Note ---
Dialysis Note - Dialysis Note Patient seen on hemodialysis, she is tolerating this well will continue her treatment unchanged.
[2017-01-15] MEDS: ALBUTEROL 1.25 MG/3 ML NEB RESP TX SCH ×3 (03:25→11:07)
[2017-01-15 06:48] LABS: Troponin I Only < 0.015 NG/ML (0.00-0.045)
[2017-01-15] MEDS: IPRATROPIUM 500 MCG/2.5 ML NEB RESP TX SCH ×2 (07:55→11:04)
--- NOTE | 2017-01-15 08:07 | ECHO Report ---
Jenny Reddy Exam Date: 01/14/2017 14:18 Referring Physician: Technologist: Barbra Yanes Age: 71 Ht (in): 65 Wt (lb): 183 Gender: F Exam Location: [facility] Echo Indications: Acute End stage renal failure, acute CVA, syncope, weakness /ERSD BP: 136 / 72 HR: 88 Rhythm: Sinus Technical Quality: Very technically difficult study IMPRESSIONS Technically difficult study Normal chamber sizes 2+ concentric LVH Normal LV systolic function with ejection fraction estimated be 60% without segmental wall motion normality Aortic sclerosis without stenosis Mitral annular calcification MEASUREMENTS (Male / Female) Normal Values 2D ECHO LV Diastolic Diameter PLAX 3.5 cm 4.2 - 5.9 / 3.9 - 5.3 cm LV Systolic Diameter PLAX 2.4 cm LV Fractional Shortening PLAX 30.5 % IVS Diastolic Thickness 1.5 cm 0.6 - 1.0 / 0.6 - 0.9 cm LVPW Diastolic Thickness 1.5 cm 0.6 - 1.0 / 0.6 - 0.9 cm Aortic Root Diameter 2.9 cm LA Systolic Diameter LX 3.4 cm 3.0 - 4.0 / 2.7 - 3.8 cm FINDINGS Left Ventricle Normal left ventricular cavity size. Mild - moderate concentric left ventricular hypertrophy with diastolic dysfunction. Left ventricular ejection fraction is estimated at 50-55 %. Right Ventricle Normal right ventricular size. Right Atrium Normal right atrial size. Left Atrium Normal left atrial size. Mitral Valve Mildly thickened mitral valve with trace -mild mitral regurgitation. Aortic Valve The aortic valve is trileaflet and has normal motion. Tricuspid Valve Morphologically normal tricuspid valve. Trace tricuspid valve regurgitation. Pulmonic Valve Morphologically normal pulmonic valve. Pericardium No pericardial effusion. Aorta Normal size aortic root and proximal ascending aorta. Brock Pedro (Electronically Signed) Final Date: 15 January 2017 08:06
[2017-01-15] MEDS: amLODIPine 10 MG TABLET PO SCH (09:22)
[2017-01-15] MEDS: ASPIRIN CHEW 81 MG TABLET PO SCH (09:22)
[2017-01-15] MEDS: GLIMEPIRIDE 2 MG TABLET PO SCH (09:22)
[2017-01-15] MEDS: PANTOPRAZOLE 40 MG TABLET PO SCH (09:22)
[2017-01-15] MEDS: DOCUSATE SODIUM 100 MG CAPSULE PO SCH (09:22)
[2017-01-15] MEDS: LOSARTAN 50 MG TABLET PO SCH (09:22)
[2017-01-15] MEDS: FUROSEMIDE 80 MG TABLET PO SCH (09:22)
[2017-01-15] MEDS: INSULIN REGULAR 100 UNIT/ML SUBCUT SCH ×2 (09:23→14:50)
[2017-01-15] MEDS: CALCITRIOL 0.25 MCG CAPSULE PO SCH (09:23)
--- NOTE | 2017-01-15 10:28 | Hospitalist Progress Note ---
Assessment and Plan (1) End-stage renal disease on hemodialysis Status: Acute Assessment and plan: Patient scheduled for hemodialysis on Monday and Monday. She reports last hemodialysis treatment on Monday of this week. We will consult nephrology to assist in the management of the patient's hemodialysis during the clinical encounter. 01/14-hemodialysis schedule for this afternoon; nephrology to manage. 01/15-continue hemodialysis per nephrology order. Current Visit: Yes (2) Generalized weakness Status: Acute Assessment and plan: Upon interview, the family reported multiple falls in recent months. They report that the patient sustained her most recent fall on Monday. In addition, they report that the patient has profound weakness to both her upper and lower torso. The patient's strength is rated 2/5 in both lower upper and lower extremity. We will consult physical and Occupational Therapy to evaluate and assist during the clinical encounter. Current Visit: Yes (3) Hypertension Problem details: Controlled on current regimen. Continue. Status: Chronic Assessment and plan: Upon review of the patient's medical record, the patient had been previously seen in the ED on yesterday for the same complaints. During that encounter the patient was noted to be hypotensive. The patient's medications have been reviewed. Blood pressure parameters have been given. We will monitor blood pressures closely during the clinical encounter. Current Visit: No (4) Transient confusion Status: Acute Assessment and plan: The family reported a gradual change in patient's mental status in recent months. They reported that the patient has been "slipping in recent months". In addition, they report that the patient's mental status has worsened since her fall on Monday. The patient was recently seen in the ED on yesterday for a fall. The patient was subsequently diagnosed with urinary tract infection and empiric antibiotic coverage was initiated. At that time, the patient was advised to stay for further evaluation however, the patient refused. CT head, face, neck were essentially unremarkable. MRI was obtained this morning in the ED which was essentially unremarkable also. Upon review of the patient's medication, the patient was noted to have several agents that could possibly attribute to confusion. We will hold all potentially sedative agents. We will consult neurology to evaluate. Per family report the patient's baseline is moderately confused. 01/14-the patient remains confused; however she is oriented to person and place. She is unable to recall her reason for admission. We will obtain MRI of the brain without contrast to evaluate for possible infarct. In addition, neurology has been consulted. 01/15-noted improvement in the patient's mental status. The patient is oriented to person place time and situation. MRI on yesterday reported an acute lacunar infarct. The patient was seen and evaluated by neurology on yesterday. We appreciate the input and agree with the recommendations. We will consult case management to evaluate for possible swing bed placement at [facility]. Current Visit: No Hospitalist: Subjective Interval history: Patient seen and examined; chart reviewed. MRI on yesterday reported acute lacunar infarct. The patient was seen by neurology recommendations were given. No significant overnight events otherwise. Exam - Constitutional Vitals: Period Temp Pulse Resp BP Sys/Wang Pulse Ox Last 24 Hr 97.2 F-98.6 F 67-89 18-20 131-138/67-78 95-100 General appearance: normal weight, no acute distress - Head Head exam: Present: normal inspection, normocephalic, atraumatic - Eye Eye exam: Present: EOMI. Absent: conjunctival injection Pupils: Present: THIAGO, normal accommodation - ENT ENT exam: Present: normal exam, normal external ear exam, normal oropharynx - Neck Neck exam: Present: normal inspection. Absent: lymphadenopathy, meningismus, tenderness, thyromegaly - Respiratory Respiratory exam: Present: clear to auscultation bilaterally. Absent: rales, rhonchi, stridor, wheezes - Cardiovascular Cardiovascular exam: Present: regular rate and rhythm. Absent: carotid bruit, diastolic murmur, gallop, JVD, rubs - GI/Abdominal GI/Abdominal exam: Present: normal bowel sounds, soft - Extremities Exam Extremities exam: Present: normal inspection, normal capillary refill, full ROM , other (AV fistula noted to the right lower forearm; positive bruit positive thrill noted) - Back Exam Back exam: Present: normal inspection - Neurological Exam Neurological exam: Present: alert, oriented X3 - Psychiatric Psychiatric exam: Present: normal affect, normal mood - Skin Skin exam: Present: normal color, warm, dry Results - Labs CBC & BMP: 01/14/17 06:05 01/14/17 06:05 Lab Results: I have reviewed the past 24 hour labs
--- NOTE | 2017-01-15 11:12 | Discharge Summary ---
<Guru Rodriguez - Last Filed: 01/15/17 11:03> Hospital Course - Hospital Course Hospital Course: This is a chronically ill 71-year-old female that presented to the ED at [facility] via EMS this morning of January 13, 2017 for the evaluation of generalized weakness. The patient reported a medical history significant for hypertension, onw-vyghumw-zjfxhdsox diabetes mellitus, chronic obstructive pulmonary disease, depression, panic attacks, rheumatoid arthritis, obstructive sleep apnea, pneumonia, and gastroesophageal reflux disease. Patient has a surgical history significant for colonoscopy, hernia repair, and hysterectomy. The patient reported the onset of symptoms 2 days prior to presentation. Upon review of the medical record, the patient had a recent encounter for the above complaints on January 12, 2017 in which she was evaluated advised that she needs to be admitted and refused inpatient admission. The daughter is present at bedside and served as historian during the history taking session. Per daughter report, the patient has sustained multiple falls in recent weeks. She reported that the patient has experienced a gradual change in her mental status in recent months however, the patient's mental status has become worse in recent days. The patient currently undergoes dialysis for end-stage renal disease at a dialysis center in [facility]. The daughter reported that the patient had finished her dialysis treatment 2 days ago and started experiencing some dizziness. The daughter alerted the dialysis staff who then in turn suggested that she take her mother to the ED for further evaluation. On January 12, 2017, the daughter reported that she transported the patient to [place] for evaluation of her AV fistula. She reported that the patient generally voids however the did not avoid any on yesterday. She became alarmed and called for EMS for emergency assistance. She reported that the patient failed to void throughout the night however reported a very small amount prior to EMS presentation. The patient was subsequently transferred to [facility] for continuation of care.The patient was assessed at the time of ED encounter. Chloride 97, BUN 51, creatinine 8.30, hemoglobin A1c 7.1, calcium 8.3, triglycerides 180, cholesterol 229. CT face, cervical spine, and he was essentially unremarkable. MRI of the cervical spine reported 1.6 mm anterolisthesis of C4 relationship to C5 however no definite fracture was identified. The patient was subsequently admitted to the hospitalist service for continuation of care. The patients medications were reviewed and adjusted. A nephrology consultation was requested. The patient was seen and evaluated; recommendations were given. Hemodialysis was resumed under the direction of nephrology. A neurology consultation was requested to evaluate a possible source of the patient's altered mental status. On January 14, 2017, the patient underwent MRI without contrast which was remarkable for the presence of an acute lacunar infarct involving the left thalamus. In addition generalized atrophy, extensive T2 and flair hyperintensity in the deep white matter of both convexities were noted which are consistent with chronic small vessel ischemic change. Incidentally, severe right chronic maxillary sinus disease was noted. Echo showed a normal left ventricular cavity size. Mild - moderate concentric left ventricular hypertrophy with diastolic dysfunction. Left ventricular ejection fraction is estimated at 50-55 %.Carotid doppler showed Less than 50% stenosis in both internal carotid arteries with heterogeneous plaque formation. A case management consultation was requested for evaluation for [facility] placement. The patient's condition slowly improved. The patient's condition is stable. She has not experienced any significant overnight events. Today, we feel that she is indeed appropriate for discharge to [facility] for continuation of care. Diagnosis - Discharge Diagnosis (1) End-stage renal disease on hemodialysis Status: Acute (2) Generalized weakness Status: Acute (3) Hypertension Status: Chronic (4) Transient confusion Status: Acute Discharge Plan - Discharge Data Disposition: Swing Bed, Hos Based, [facility] - Discharge Medications New Aspirin Chew Tab 81 mg PO DAILY tablet Insulin Regular [HumuLIN R] See Protocol SUBCUT ACHS unit Losartan [Cozaar] 50 mg PO DAILY tablet Pantoprazole Tab [Protonix Tab] 40 mg PO DAILY tablet Acetaminophen Tab [Tylenol Tab] 325 mg PO Q4H PRN tablet PRN Reason: fever, headache/body aches Albuterol Neb [Proventil Neb] 1.25 mg RESP TX RT Q4H Pravastatin [Pravachol] 40 mg PO BEDTIME tablet Continue Albuterol Sulfate [Proair HFA] 2 puff INH Q4HR amLODIPine [Norvasc] 10 mg PO DAILY Ipratropium/Albuterol Inhaler [Combivent Respimat Inhaler] 1 puff INH QID Glimepiride [Amaryl] 2 mg PO DAILY Furosemide Tab [Lasix Tab] 80 mg PO BID DIURETIC #60 tablet Levalbuterol Neb [Xopenex Neb] 0.63 mg RESP TX RT Q4H PRN #0 PRN Reason: Shortness Of Breath/Wheezing Tiotropium Inhalation [Spiriva Handihaler] 18 mcg INH DAILY #1 Meclizine [Antivert] 25 mg PO QID PRN #20 tablet PRN Reason: Vertigo Calcium Acetate [Phoslo] 1,334 mg PO TID W/MEALS Montelukast Sodium 10 mg PO DAILY Prorenal D 1 tablet PO DAILY Calcitriol [Rocaltrol] 0.25 mcg PO DAILY #30 capsule Tramadol HCl [Tramadol Tab] 50 mg PO BID PRN PRN Reason: Pain Lidocaine/Prilocaine Cream [Emla] 1 applic TOP DAILY Discontinued Pravastatin [Pravachol] 20 mg PO BEDTIME #30 tablet Amoxicillin Cap/Tab 250 mg PO BID Valsartan [Diovan] 160 mg PO DAILY Levalbuterol Neb [Xopenex Neb] 1.25 mg RESP TX RT Q6H #1 applicator - Follow Up or Referral - Forms/Instructions Exam - Constitutional Vitals: Period Temp Pulse Resp BP Sys/Wang Pulse Ox Last 24 Hr 97.2 F-97.9 F 67-89 18-20 119-138/67-78 95-100 Discharge Results Labs on day of discharge: Labs from last 24 hours 01/15/17 01/15/17 01/14/17 07:41 05:45 19:30 POC Glucose 99 178 H Total Creatine Kinase 59 CK-MB (CK-2) 1.4 Troponin I < 0.015 01/14/17 01/14/17 01/14/17 18:09 13:00 12:50 POC Glucose 129 H 146 H Total Creatine Kinase 64 CK-MB (CK-2) 1.0 Troponin I < 0.015 DS: Provider Date of admission: 01/13/17 13:50 Primary care physician: Francesca Rain Attending physician on admission: Emily Miller MD Consults: 01/13/17 13:51 Consult to Case Mgmt/Social Srvs [CONS] Routine Reason for Case Mgmt/Social Srvs: Discharge Planning Swingbed/SNF/Skilled Nursing Consult Comment: Anupam Marroquin 01/13/17 13:52 Consult to Occupational Therapy [CONS] Routine Reason for Occupational Therapy: Evaluate and Treat Consult to Physical Therapy [CONS] Routine Reason for Physical Therapy: Evaluate and Treat 01/13/17 13:56 Consult to Physician [CONS] Routine Comment: Consulting Provider: Manpreet Oh When should Consulting Provider be notified: Now Consult Notification Comment: aware 01/13/17 14:38 Consult to Physician [CONS] Routine Comment: Consulting Provider: Landon Nguyen When should Consulting Provider be notified: Now Person Notified: md aware Date Notified: 01/13/17 Time Notified: 16:06 01/14/17 13:47 Consult to Case Mgmt/Social Srvs [CONS] Routine Reason for Case Mgmt/Social Srvs: Rehab Consult Comment: anupam Marroquin in am, Dr Nguyen request Discharging clinician: Guru Rodriguez CNP <Emily Miller - Last Filed: 01/15/17 12:15> Hospital Course - Time spent with patient Time with patient DS: Greater than 30 minutes (Time spent-35mins) Diagnosis - Discharge Diagnosis (1) Hypertension Status: Chronic (2) Diabetes Status: Chronic (3) End-stage renal disease on hemodialysis Status: Acute (4) Acute CVA (cerebrovascular accident) Status: Acute Discharge Plan - Discharge Data Condition at Discharge: Stable Discharge Diet: advance to your usual diet, diabetic diet Activity: resume usual activities as tolerated - Forms/Instructions Additional Discharge Instructions: Follow with PCP and Neuro as scheduled Exam - Constitutional General appearance: no acute distress - Head Head exam: Present: normal inspection - Respiratory Respiratory exam: Present: clear to auscultation bilaterally - Cardiovascular Cardiovascular exam: Present: regular rate and rhythm - GI/Abdominal GI/Abdominal exam: Present: normal bowel sounds - Extremities Exam Extremities exam: Present: normal inspection - Neurological Exam Neurological exam: Present: alert, oriented X3
--- NOTE | 2017-01-15 11:57 | Neurology Progress Note ---
Neurology - PN : Subjective Interval history: Patient seems to be doing okay clinically. No new problems reported. Is still weak. Exam (Progress Note) - Constitutional Vitals: Period Temp Pulse Resp BP Sys/Wang Pulse Ox Last 24 Hr 97.2 F-98.6 F 67-89 18-20 119-138/67-78 95-100 Exam: GENERAL: Patient is in no acute distress. NECK: Neck is supple. There is no JVD. No carotid bruits present. No thyroid masses. CVS: First and second heart sounds are normal. There is no S3 present. Regular rate and rhythm. RESPIRATORY: Lungs are clear to auscultation without any rales or rhonchi. ABDOMEN: Soft and non-tender. Bowel sounds are present. There is no hepatosplenomegaly. EXT: There is no palpable edema. Peripheral pulses are present. Skin: No rashes Central Nervous system: General: Alert, awake and Oriented Speech: Fluent Comprehension: Intact and normal Facial expressions: Normal Cranial Nerves: CN1/Olfactory: Normal CN II/ Optic: Normal, Visual Billingsley unreliable CN III, and : THIAGO & EOMI CN V: Normal & intact CN VII: face is symmetric CNVIII: Normal CN XI/X/XI/XII: Intact and Normal Motor: Bulk and Tone is normal. Strength in the right 3/5 Strength in the left 5/5 Sensory: Decreased for all the modalities of PP, LT and temp sense Reflexes: 1+ and symmetrical Cerebellar function: Normal finger to nose and heel to hollis testing. Toes: Equivocal Gait: Not tested at this time Results - Labs CBC & BMP: 01/14/17 06:05 01/14/17 06:05 Assessment and Plan (1) Acute CVA (cerebrovascular accident) Status: Acute Assessment and plan: Agree with aspirin a day For TMR placement today Current Visit: Yes (2) Hypertension Problem details: Controlled on current regimen. Continue. Status: Chronic Assessment and plan: Continue current medications. Check vitals per routine. Current Visit: No (3) Diabetes Status: Chronic Assessment and plan: Continue Accu-Cheks with a sliding scale coverage. Current Visit: No Qualifiers: Diabetes mellitus type: type 2 Diabetes mellitus complication status: with kidney complications Chronic kidney disease stage: on chronic dialysis (4) End-stage renal disease on hemodialysis Status: Acute Assessment and plan: Continue dialysis as per nephrology recommendations. Current Visit: Yes
[2017-01-15 14:22] VITALS: BP 124/70
--- NOTE | 2017-01-15 14:32 | Nephrology Progress Note ---
Nephrology - PN: Subj Interval history: Patient is feeling well. She denies shortness of breath. Review of systems GI she denies nausea or vomiting, general-patient states she did well with dialysis yesterday not having any dizziness or asthenia Physical exam general the patient is in no acute distress Assessment/plan 1. End-stage renal disease-we will continue hemodialysis support 2. Diabetes mellitus 3. Hypertension 4. Falls-I will continue to hold patient's antihypertensives as long as her blood pressure is under fair control with the systolic as high as 140-150, I wonder if the patient was getting pulled too low on hemodialysis. I suggested to her that she increase her dry weight on dialysis. Exam (PN)-Nephrology - Vital Signs Vital signs: Period Temp Pulse Resp BP Sys/Wang Pulse Ox Last 24 Hr 97.2 F-97.9 F 67-89 18-20 119-138/67-78 95-100 - Lab 01/14/17 06:05 01/14/17 06:05 Most recent lab results Calcium 7.7 MG/DL (8.5-10.1) L 01/14/17 06:05 Magnesium 2.6 MG/DL (1.8-2.4) H 01/14/17 06:05 Assessment and Plan (1) End-stage renal disease on hemodialysis Status: Acute Assessment and plan: We will continue hemodialysis, patient does make some urine, she may not need much pull on her dialysis. Current Visit: Yes (2) Generalized weakness Status: Acute Current Visit: Yes (3) Multiple falls Status: Acute Assessment and plan: Perhaps the patient is overmedicated with antihypertensives and diuretics and may also be getting pulled too hard on dialysis. Current Visit: Yes (4) Diabetes Status: Chronic Current Visit: No Qualifiers: Diabetes mellitus type: type 2 Diabetes mellitus complication status: with kidney complications Chronic kidney disease stage: on chronic dialysis (5) Hypertension Problem details: Controlled on current regimen. Continue. Status: Chronic Assessment and plan: We may do well to start backing off some of her antihypertensives and let her blood pressure drift up some in order to combat her frequent falls. Will observe how she does with dialysis today. Current Visit: No (6) Urinary tract infection Problem details: Not a true UTI (colony count <100K). Has finished enough antiobiotics for asymptomatic bactiuria. Stopped fortaz. Status: Resolved Current Visit: No Specialty Discharge - Follow Up or Referrals
[2017-01-15] MEDS: ENOXAPARIN 30 MG/0.3 ML SYRINGE SUBCUT SCH (14:51)
--- NOTE | 2017-01-17 07:01 | Physician Query Form ---
CLICK EDIT DOCUMENT TO SELECT QUERY ANSWER --> OK --> SIGN Kat Lopez RN, CCDS Certified Clinical [employer] Associate W) [phone] (f) [phone] [email or web address] PROVIDERS: Make your selection(s) from the choices in EACH section by typing an "x" and enter comments in the comment section. Please use your independent medical judgment in providing your response. This request does not imply that any particular answer is desired or expected. CLINICAL INDICATORS: (Providers should not edit this section) The medical record indicates that the patient was admitted with generalized weakness, AMS, "gradual change in her mental status in recent months", "mental status has become worse in recent days" "will obtain MRI of the brain without contrast to evaluate for possible infarct." CT/MRI confirmed stroke ACUITY: ( x) Acute ( ) Acute on Chronic ( ) Chronic ( ) Clinically unable to determine NATURE: ( ) Delirium due to general medical condition ( ) Dementia ( x) Encephalopathy ( ) Unconscious ( ) Transient level of awareness ( ) Comatose ( ) Locked-in State ( ) Persistent Vegetative State ( ) Other, please specify: ( ) Clinically unable to determine Please indicate the underlying cause of the altered mental status (CHECK ALL THAT APPLY): ( ) Baseline dementia ( ) Alzheimer's disease ( ) Parkinson's disease ( ) Lewy body dementia ( ) Acute stroke ( ) Late effect of stroke ( ) Reactive (from emotional stress, psychological trauma) ( ) Due to narcotics/other drugs ( ) Post procedural delirium ( ) Transient ischemic attack ( ) Generalized cerebral edema ( ) Normal pressure hydrocephalus ( ) Psychiatric illness (x ) Other, please specify:underlying illness ( ) Clinically unable to determine Please indicate if there is an infection, sepsis, dehydration or specific organ failure that is causing the dementia. Be specific with clarifying the relationship between that process and the mental status change. COMMENTS: PLEASE ALSO DOCUMENT RESPONSE IN PROGRESS NOTES AND/OR DISCHARGE SUMMARY Use of terms such as suspected, likely, or probable (associated with a specific diagnosis that is being evaluated, monitored, or treated as if it exists) are acceptable and can be restated in the discharge summary if not ruled out. MTDD
== END 2017-01-15 14:30 | DRG 64 ==
LOC: EDBD → EDUNIT# → N.ED 09:19 → N.EDINP 13:50 → N.5E 15:23
PROVIDERS: ADMIT Internal Medicine; ATTEND Internal Medicine

== ENCOUNTER 2017-07-10 12:08 | Inpatient (IN) ==
[2017-07-10 12:53] LABS: Basophils # 0.1 10*3/uL (0.0-0.2); Basophils % 0.4 % (0.0-0.8); Eosinophils # 0.1 10*3/uL (0.0-0.87); Eosinophils % 0.8 % (0.00-10.9); Hematocrit 31.1 VOL% (35.7-47.0); Hemoglobin 10.1 GM/DL (12.0-16.0); Immature Granulocytes % 0.8 %; Immature Granulocytes Absolute 0.11 #; Lymphocytes # 3.2 10*3/uL (1.4-4.0); Lymphocytes % 24.8 % (21.3-54.2); Mean Corpuscular HGB Conc 32.5 GM/DL (32-36); Mean Corpuscular Hemoglobin 33 PG (27-34); Mean Corpuscular Volume 102.6 FL (87-102); Mean Platelet Volume 9.6 FL (9.6-12.0); Monocytes # 0.8 10*3/uL (0.11-0.8); Monocytes % 5.8 % (1.7-12.7); NRBC # 0.06 10*3/uL; Neutrophils # 8.8 10*3/uL (1.4-7.4); Neutrophils % 67.4 % (38.7-73.9); Platelet Count 378 T/CUMM (130-400); Red Blood Count 3.03 MC/CUMM (3.8-5.5)
[2017-07-10 13:26] LABS: Albumin 1.4 G/DL (3.4-5.0); Bilirubin,Total 1.5 MG/DL (0.2-1.0); Osmolality,Calculated 285.1 MOS/KG (273-304); Potassium 4.2 MMOL/L (3.5-5.1); Total Protein 5.8 G/DL (6.4-8.3)
[2017-07-10 13:27] LABS: Troponin I Only 0.266 NG/ML (0.00-0.045)
[2017-07-10 15:07] LABS: ABG Base Excess 4.5 MMOL/L (-2.5-2.5); ABG HCO3 28.5 MMOL/L (20-26); ABG Oxygen Saturation 98.1 % (95-100); ABG PCO2 23.6 MM HG (35-48); ABG PO2 85.8 MM HG (80-95); ABG TCO2 22.8 MMOL/L (23-27)
[2017-07-10 15:20] LABS: ABG PH 7.632 (7.35-7.45)
[2017-07-10] MEDS ORDERED: ACETAMINOPHEN 325 MG TABLET PO PRN (20:12)
[2017-07-10] MEDS ORDERED: GLUCAGON 1 MG VIAL IM PRN ×2 (20:12)
[2017-07-10] MEDS ORDERED: ONDANSETRON 4 MG/2 ML VIAL IV PRN (20:12)
[2017-07-10] MEDS ORDERED: DEXTROSE 50% 25 GM/50 ML VIAL IV PRN ×2 (20:12)
[2017-07-10] MEDS ORDERED: MECLIZINE 25 MG TABLET PO PRN (20:20)
[2017-07-10] MEDS ORDERED: traMADol 50 MG TABLET PO PRN (20:20)
[2017-07-10] MEDS: cefTRIAXone 1,000 MG in SYRINGE 1 EACH IV SCH (22:22)
[2017-07-10] MEDS: ENOXAPARIN 30 MG/0.3 ML SYRINGE SUBCUT SCH (22:22)
[2017-07-10] MEDS: CARVEDILOL 6.25 MG TABLET PO SCH (22:22)
[2017-07-10] MEDS: INSULIN REGULAR 100 UNIT/ML SUBCUT SCH (22:22)
[2017-07-10] MEDS: AZITHROMYCIN INJ 500 MG in SODIUM CHLORIDE 0.9% 250 ML IV SCH (23:37)
[2017-07-11] MEDS: ALBUTEROL/IPRATROPIUM 3 ML NEB RESP TX SCH ×4 (00:38→19:27)
[2017-07-11 04:25] LABS: Basophils % 0.4 % (0.0-0.8); Eosinophils # 0.2 10*3/uL (0.0-0.87); Eosinophils % 1.7 % (0.00-10.9); Hematocrit 27.5 VOL% (35.7-47.0); Hemoglobin 8.9 GM/DL (12.0-16.0); Immature Granulocytes % 0.8 %; Immature Granulocytes Absolute 0.08 #; Lymphocytes # 2.4 10*3/uL (1.4-4.0); Mean Corpuscular HGB Conc 32.4 GM/DL (32-36); Mean Corpuscular Hemoglobin 34 PG (27-34); Mean Corpuscular Volume 106.2 FL (87-102); Mean Platelet Volume 9.9 FL (9.6-12.0); Monocytes # 0.9 10*3/uL (0.11-0.8); Monocytes % 8.6 % (1.7-12.7); NRBC # 0.04 10*3/uL; Neutrophils # 6.4 10*3/uL (1.4-7.4); Neutrophils % 64.5 % (38.7-73.9); Platelet Count 315 T/CUMM (130-400); Red Blood Count 2.59 MC/CUMM (3.8-5.5); Red Cell Distribution Width 14.3 % (9.3-17.3)
[2017-07-11 04:55] LABS: Calcium 7.4 MG/DL (8.5-10.1); Osmolality,Calculated 276.1 MOS/KG (273-304); Potassium 4.2 MMOL/L (3.5-5.1)
[2017-07-11 06:03] LABS: Calcium 7.3 MG/DL (8.5-10.1); Potassium 4.4 MMOL/L (3.5-5.1)
[2017-07-11] MEDS: INSULIN REGULAR 100 UNIT/ML SUBCUT SCH ×4 (11:22→21:29)
[2017-07-11] MEDS: LIDOCAINE/PRILOCAINE CREAM 5 GM TUBE TOP SCH (11:23)
[2017-07-11] MEDS: CALCIUM ACETATE 667 MG CAPSULE PO SCH ×3 (11:23→18:19)
[2017-07-11] MEDS: amLODIPine 10 MG TABLET PO SCH (11:53)
[2017-07-11] MEDS: MULTIVITAMIN (BEROCCA) TABLET PO SCH (11:53)
[2017-07-11] MEDS: VALSARTAN 160 MG TABLET PO SCH (11:54)
[2017-07-11] MEDS: FUROSEMIDE 80 MG TABLET PO SCH ×2 (11:54→18:19)
[2017-07-11] MEDS: CARVEDILOL 6.25 MG TABLET PO SCH ×2 (11:54→18:19)
[2017-07-11] MEDS: PANTOPRAZOLE 40 MG TABLET PO SCH (12:00)
[2017-07-11] MEDS: cefTRIAXone 1,000 MG in SYRINGE 1 EACH IV SCH (21:29)
[2017-07-11] MEDS: ENOXAPARIN 30 MG/0.3 ML SYRINGE SUBCUT SCH (21:30)
[2017-07-11] MEDS: AZITHROMYCIN INJ 500 MG in SODIUM CHLORIDE 0.9% 250 ML IV SCH (21:30)
[2017-07-12] MEDS: ALBUTEROL/IPRATROPIUM 3 ML NEB RESP TX SCH ×3 (00:26→14:20)
[2017-07-12 08:02] VITALS: BP 100/61
[2017-07-12] MEDS: CALCIUM ACETATE 667 MG CAPSULE PO SCH ×2 (08:18→13:16)
[2017-07-12] MEDS: LIDOCAINE/PRILOCAINE CREAM 5 GM TUBE TOP SCH (11:09)
[2017-07-12] MEDS: INSULIN REGULAR 100 UNIT/ML SUBCUT SCH ×2 (11:09→14:36)
[2017-07-12] MEDS: MULTIVITAMIN (BEROCCA) TABLET PO SCH (13:16)
[2017-07-12] MEDS: CARVEDILOL 6.25 MG TABLET PO SCH ×2 (13:17→16:18)
[2017-07-12] MEDS: VALSARTAN 160 MG TABLET PO SCH (13:17)
[2017-07-12] MEDS: amLODIPine 10 MG TABLET PO SCH (13:17)
[2017-07-12] MEDS: PANTOPRAZOLE 40 MG TABLET PO SCH (13:17)
[2017-07-12] MEDS: FUROSEMIDE 80 MG TABLET PO SCH ×2 (14:36→16:18)
== END 2017-07-12 17:06 | disposition home or self-care (01) | DRG 193 ==
LOC: EDUNIT# → EDBD → N.ED 12:08 → N.EDINP 18:29 → N.TELES 19:25

== ENCOUNTER 2018-06-27 18:41 | Observation (INO) ==
[2018-06-27] MEDS ORDERED: DEXTROSE 50% 25 GM/50 ML VIAL IV PRN (21:44)
[2018-06-27] MEDS ORDERED: GLUCAGON 1 MG VIAL IM PRN (21:44)
[2018-06-27] MEDS ORDERED: ONDANSETRON 4 MG/2 ML VIAL IV PRN (21:44)
[2018-06-27] MEDS ORDERED: ZALEPLON 5 MG CAPSULE PO PRN (21:44)
[2018-06-27] MEDS ORDERED: predniSONE 20 MG TABLET PO ONE (21:57)
[2018-06-27] MEDS ORDERED: hydrALAZINE 20 MG/1 ML VIAL IV PRN (22:12)
[2018-06-28] MEDS: LEVALBUTEROL 1.25 MG/3 ML NEB RESP TX SCH ×3 (01:20→13:35)
[2018-06-28 07:01] LABS: Basophils # 0.1 10*3/uL (0.0-0.2); Basophils % 0.4 % (0.0-0.8); Eosinophils # 0.1 10*3/uL (0.0-0.87); Eosinophils % 1.1 % (0.00-10.9); Hematocrit 33.8 VOL% (35.7-47.0); Hemoglobin 10.7 GM/DL (12.0-16.0); Immature Granulocytes % 0.5 %; Immature Granulocytes Absolute 0.06 #; Lymphocytes # 1.2 10*3/uL (1.4-4.0); Lymphocytes % 9.9 % (21.3-54.2); Mean Corpuscular HGB Conc 31.7 GM/DL (32-36); Mean Corpuscular Hemoglobin 32 PG (27-34); Mean Corpuscular Volume 100.9 FL (87-102); Mean Platelet Volume 10.2 FL (9.6-12.0); Monocytes # 0.4 10*3/uL (0.11-0.8); Monocytes % 2.9 % (1.7-12.7); Neutrophils # 10.4 10*3/uL (1.4-7.4); Neutrophils % 85.2 % (38.7-73.9); Platelet Count 182 T/CUMM (130-400); Red Blood Count 3.35 MC/CUMM (3.8-5.5); Red Cell Distribution Width 14.4 % (9.3-17.3); White Blood Count 12.2 T/CUMM (4-12)
[2018-06-28 07:26] LABS: Alkaline Phosphatase 52 U/L (45-117); Aspartate Amino Transferase 13 U/L (0-37); Calcium 8.4 MG/DL (8.5-10.1)
[2018-06-28 07:27] LABS: Alanine Aminotransferase < 9 U/L (13-56); Albumin 2.7 G/DL (3.4-5.0); Blood Urea Nitrogen 44 MG/DL (7-18); Glucose 128 MG/DL (74-106); Sodium 136 MMOL/L (136-145); Total Protein 6.3 G/DL (6.4-8.3)
[2018-06-28] MEDS ORDERED: INSULIN REGULAR 100 UNIT/ML SUBCUT SCH (07:30)
[2018-06-28 07:34] LABS: Potassium 6.2 MMOL/L (3.5-5.1)
[2018-06-28] MEDS ORDERED: PANTOPRAZOLE 40 MG TABLET PO SCH (09:00)
[2018-06-28] MEDS ORDERED: predniSONE 20 MG TABLET PO SCH (09:00)
[2018-06-28] MEDS ORDERED: MECLIZINE 25 MG TABLET PO PRN (09:54)
[2018-06-28] MEDS ORDERED: traMADol 50 MG TABLET PO PRN (09:54)
[2018-06-28] MEDS ORDERED: ONDANSETRON 4 MG TABLET PO PRN (09:54)
[2018-06-28] MEDS ORDERED: ALBUTEROL 2.5 MG/3 ML NEB RESP TX PRN (10:00)
[2018-06-28] MEDS ORDERED: PROMETHAZINE 25 MG TABLET PO PRN (10:00)
[2018-06-28 17:00] VITALS: BP 160/83
[2018-06-29] MEDS ORDERED: GLIMEPIRIDE 2 MG TABLET PO SCH (08:00)
[2018-06-29] MEDS ORDERED: MULTIVITAMIN (BEROCCA) TABLET PO SCH (09:00)
[2018-06-29] MEDS ORDERED: BECLOMETHASONE 80 MCG/PUFF INHALER 8.7 GM INH SCH (09:00)
[2018-06-29] MEDS ORDERED: VALSARTAN 160 MG TABLET PO SCH (09:00)
[2018-06-29] MEDS ORDERED: NON-FORMULARY MEDICATION (Omeprazole [Omeprazole] 40 MG) PO SCH (09:00)
== END 2018-06-28 17:24 | disposition home or self-care (01) ==
LOC: N.2E → SUATTDRO 20:47
PROVIDERS: ADMIT Internal Medicine; ATTEND Hospitalist

== ENCOUNTER 2018-07-22 12:54 | Inpatient (IN) ==
[2018-07-22 14:03] LABS: Basophils % 0.3 % (0.0-0.8); Eosinophils # 0.3 10*3/uL (0.0-0.87); Eosinophils % 2.7 % (0.00-10.9); Hematocrit 34.1 VOL% (35.7-47.0); Hemoglobin 10.8 GM/DL (12.0-16.0); Immature Granulocytes % 0.4 %; Immature Granulocytes Absolute 0.05 #; Lymphocytes # 1.9 10*3/uL (1.4-4.0); Lymphocytes % 15.6 % (21.3-54.2); Mean Corpuscular HGB Conc 31.7 GM/DL (32-36); Mean Corpuscular Hemoglobin 33 PG (27-34); Mean Platelet Volume 9.8 FL (9.6-12.0); Monocytes % 8.3 % (1.7-12.7); Neutrophils # 8.6 10*3/uL (1.4-7.4); Neutrophils % 72.7 % (38.7-73.9); Platelet Count 263 T/CUMM (130-400); Red Blood Count 3.31 MC/CUMM (3.8-5.5); White Blood Count 11.8 T/CUMM (4-12)
[2018-07-22 14:11] LABS: Apearance,Urine CLEAR (Clear); Bilirubin,Urine Negative (Negative); Blood, Urine Small mg/dL (Negative); Glucose,Urine (UA) 150 mg/dL (Negative); Ketones,Urine Negative (Negative); Nitrite,Urine Negative (Negative); Protein,Urine 100 MG/DL; RBC,Urine 2 /HPF (0-4); Squamous Epithelial Cell,Urine Occasional /HPF (0-10); Urine Color Straw (Yellow); Urine Specific Gravity 1.006 (1.001-1.035); Urine Urobilinogen < 2.0 EU/DL (0.2-1.0); WBC,Urine 2 /HPF (0-6)
[2018-07-22 14:18] LABS: Barbiturates Screen,Urine Negative (Negative); Benzodiazepines Screen,Urine Negative (Negative); Cannabinoid Screen,Urine Negative (Negative); Opiate Screen,Urine Positive (Negative); Phencyclidine Screen,Urine Negative (Negative)
[2018-07-22] MEDS ORDERED: cloNIDine 0.1 MG TABLET PO STA (14:35)
[2018-07-22 15:08] LABS: Albumin 3.2 G/DL (3.4-5.0); Bilirubin,Total 0.6 MG/DL (0.2-1.0); Calcium 8.6 MG/DL (8.5-10.1); Potassium 5.2 MMOL/L (3.5-5.1); Total Protein 7.5 G/DL (6.4-8.3)
[2018-07-22] MEDS ORDERED: BISACODYL 5 MG TABLET PO PRN (16:54)
[2018-07-22] MEDS ORDERED: ACETAMINOPHEN 325 MG TABLET PO PRN (16:54)
[2018-07-22] MEDS ORDERED: DOCUSATE SODIUM 100 MG CAPSULE PO PRN (16:54)
[2018-07-22] MEDS ORDERED: guaiFENesin/DM ER 600-30 MG TABLET PO PRN (16:54)
[2018-07-22] MEDS ORDERED: MECLIZINE 25 MG TABLET PO PRN (16:57)
[2018-07-22] MEDS ORDERED: ALBUTEROL 2.5 MG/3 ML NEB RESP TX PRN (16:57)
[2018-07-22] MEDS: INSULIN LISPRO 100 UNIT/ML SUBCUT SCH (21:56)
[2018-07-22] MEDS: ENOXAPARIN 30 MG/0.3 ML SYRINGE SUBCUT SCH (22:01)
[2018-07-22] MEDS: NON-FORMULARY MEDICATION (Sucroferric Oxyhydroxide [Velphoro Chew Tab] 500 MG) PO SCH (22:05)
[2018-07-22 22:50] LABS: Troponin I 0.083 NG/ML (0.00-0.045)
[2018-07-23] MEDS: ONDANSETRON 4 MG/2 ML VIAL IV PRN ×2 (02:59→09:50)
[2018-07-23] MEDS ORDERED: PROMETHAZINE 25 MG/1 ML VIAL IM PRN (04:58)
[2018-07-23] MEDS ORDERED: PROMETHAZINE 25 MG/1 ML VIAL ONE (05:02)
[2018-07-23 05:50] LABS: Basophils # 0.1 10*3/uL (0.0-0.2); Basophils % 0.4 % (0.0-0.8); Eosinophils % 0.3 % (0.00-10.9); Hematocrit 34.3 VOL% (35.7-47.0); Hemoglobin 10.8 GM/DL (12.0-16.0); Immature Granulocytes % 0.7 %; Lymphocytes # 0.8 10*3/uL (1.4-4.0); Lymphocytes % 5.5 % (21.3-54.2); Mean Corpuscular HGB Conc 31.5 GM/DL (32-36); Mean Corpuscular Hemoglobin 33 PG (27-34); Mean Corpuscular Volume 103.6 FL (87-102); Mean Platelet Volume 9.5 FL (9.6-12.0); Monocytes # 0.9 10*3/uL (0.11-0.8); Neutrophils # 12.7 10*3/uL (1.4-7.4); Neutrophils % 87.1 % (38.7-73.9); Platelet Count 242 T/CUMM (130-400); Red Blood Count 3.31 MC/CUMM (3.8-5.5); Red Cell Distribution Width 14.6 % (9.3-17.3); White Blood Count 14.5 T/CUMM (4-12)
[2018-07-23 06:30] LABS: Troponin I 0.069 NG/ML (0.00-0.045)
[2018-07-23 06:33] LABS: Albumin 2.9 G/DL (3.4-5.0); Bilirubin,Total 0.6 MG/DL (0.2-1.0); Calcium 8.4 MG/DL (8.5-10.1); Osmolality,Calculated 291.5 MOS/KG (273-304); Potassium 5.5 MMOL/L (3.5-5.1); Total Protein 6.3 G/DL (6.4-8.3)
[2018-07-23 06:36] LABS: Risk Ratio 2.56; VLDL CHOLESTEROL 14.8 MG/DL
[2018-07-23] MEDS: IPRATROPIUM 500 MCG/2.5 ML NEB RESP TX SCH ×5 (08:25→19:25)
[2018-07-23] MEDS ORDERED: ASPIRIN 300 MG SUPP RECTAL ONE (08:31)
[2018-07-23] MEDS ORDERED: NALOXONE 0.4 MG/ML VIAL IV ONE (08:35)
[2018-07-23] MEDS ORDERED: SODIUM CHLORIDE 0.9% 250 ML IV ONE (08:36)
[2018-07-23] MEDS ORDERED: VALSARTAN 160 MG TABLET PO SCH (09:00)
[2018-07-23] MEDS ORDERED: PANTOPRAZOLE 40 MG TABLET PO SCH ×2 (09:00)
[2018-07-23] MEDS: INSULIN LISPRO 100 UNIT/ML SUBCUT SCH ×4 (10:49→20:49)
[2018-07-23] MEDS: NON-FORMULARY MEDICATION (Sucroferric Oxyhydroxide [Velphoro Chew Tab] 500 MG) PO SCH ×3 (10:50→23:39)
[2018-07-23] MEDS: ASPIRIN EC 325 MG TABLET PO SCH (10:50)
[2018-07-23] MEDS: BECLOMETHASONE 80 MCG/PUFF INHALER 8.7 GM INH SCH (10:50)
[2018-07-23] MEDS: NON-FORMULARY MEDICATION (Prorenal D 1 TABLET) PO SCH (10:50)
[2018-07-23] MEDS ORDERED: predniSONE 20 MG TABLET PO SCH (14:00)
[2018-07-23] MEDS ORDERED: methylPREDNISolone SOD SUC 125 MG/2 ML VIAL IV ONE (14:32)
[2018-07-23] MEDS: ENOXAPARIN 30 MG/0.3 ML SYRINGE SUBCUT SCH (17:37)
[2018-07-24] MEDS: IPRATROPIUM 500 MCG/2.5 ML NEB RESP TX SCH ×4 (07:57→19:00)
[2018-07-24] MEDS: INSULIN LISPRO 100 UNIT/ML SUBCUT SCH (08:53)
[2018-07-24] MEDS ORDERED: GLUCAGON 1 MG VIAL IM PRN (08:57)
[2018-07-24] MEDS ORDERED: DEXTROSE 50% 25 GM/50 ML VIAL IV PRN (08:57)
[2018-07-24] MEDS ORDERED: METOPROLOL TARTRATE 5 MG/5 ML VIAL IV PRN (08:59)
[2018-07-24] MEDS ORDERED: methylPREDNISolone SOD SUC 40 MG/1 ML VIAL IV SCH ×2 (09:00)
[2018-07-24] MEDS: NON-FORMULARY MEDICATION (Sucroferric Oxyhydroxide [Velphoro Chew Tab] 500 MG) PO SCH ×3 (09:54→23:46)
[2018-07-24] MEDS: NON-FORMULARY MEDICATION (Prorenal D 1 TABLET) PO SCH (09:56)
[2018-07-24] MEDS: methylPREDNISolone SOD SUC INJ 1,000 MG in SODIUM CHLORIDE 0.9% 100 ML IV SCH (10:39)
[2018-07-24] MEDS: PANTOPRAZOLE 40 MG VIAL IV SCH ×2 (10:39→20:58)
[2018-07-24] MEDS: ASPIRIN EC 325 MG TABLET PO SCH (10:59)
[2018-07-24] MEDS: BECLOMETHASONE 80 MCG/PUFF INHALER 8.7 GM INH SCH (13:05)
[2018-07-24] MEDS: INSULIN REGULAR 100 UNIT/ML SUBCUT SCH ×2 (13:26→17:54)
[2018-07-24] MEDS: HEPARIN 5,000 UNIT/1 ML VIAL SUBCUT SCH (20:59)
[2018-07-25] MEDS ORDERED: LORazepam 2 MG/1 ML VIAL IV ONE (01:09)
[2018-07-25] MEDS: INSULIN REGULAR 100 UNIT/ML SUBCUT SCH ×4 (04:04→20:02)
[2018-07-25] MEDS: IPRATROPIUM 500 MCG/2.5 ML NEB RESP TX SCH ×4 (07:33→18:52)
[2018-07-25] MEDS: HEPARIN 5,000 UNIT/1 ML VIAL SUBCUT SCH ×2 (09:00→22:06)
[2018-07-25] MEDS ORDERED: cefTRIAXone 1,000 MG in SYRINGE 1 EACH IV SCH (09:30)
[2018-07-25] MEDS: PANTOPRAZOLE 40 MG VIAL IV SCH ×2 (10:50→22:06)
[2018-07-25] MEDS: methylPREDNISolone SOD SUC INJ 1,000 MG in SODIUM CHLORIDE 0.9% 100 ML IV SCH ×2 (10:58→12:00)
[2018-07-25] MEDS: MULTIVITAMIN (BEROCCA) TABLET PO SCH (14:37)
[2018-07-25] MEDS: ASPIRIN EC 325 MG TABLET PO SCH (14:37)
[2018-07-25] MEDS: NON-FORMULARY MEDICATION (Sucroferric Oxyhydroxide [Velphoro Chew Tab] 500 MG) PO SCH ×2 (14:38→16:46)
[2018-07-25] MEDS: BECLOMETHASONE 80 MCG/PUFF INHALER 8.7 GM INH SCH (14:38)
[2018-07-25] MEDS: CLOTRIMAZOLE 10 MG TROCHE PO SCH ×2 (18:58→22:05)
[2018-07-25] MEDS: AMOXICILLIN/CLAV 875 MG TABLET PO SCH (22:05)
[2018-07-26] MEDS: NON-FORMULARY MEDICATION (Sucroferric Oxyhydroxide [Velphoro Chew Tab] 500 MG) PO SCH ×4 (00:15→21:07)
[2018-07-26] MEDS: INSULIN REGULAR 100 UNIT/ML SUBCUT SCH ×4 (02:13→18:22)
[2018-07-26] MEDS: IPRATROPIUM 500 MCG/2.5 ML NEB RESP TX SCH ×4 (07:57→20:08)
[2018-07-26 09:16] LABS: Basophils # 0.1 10*3/uL (0.0-0.2); Basophils % 0.3 % (0.0-0.8); Hematocrit 34.1 VOL% (35.7-47.0); Hemoglobin 11.1 GM/DL (12.0-16.0); Immature Granulocytes % 0.6 %; Lymphocytes # 0.6 10*3/uL (1.4-4.0); Mean Corpuscular HGB Conc 32.6 GM/DL (32-36); Mean Corpuscular Hemoglobin 33 PG (27-34); Mean Platelet Volume 10.5 FL (9.6-12.0); Monocytes % 6.7 % (1.7-12.7); Neutrophils # 13.7 10*3/uL (1.4-7.4); Neutrophils % 88.4 % (38.7-73.9); Platelet Count 204 T/CUMM (130-400); Red Blood Count 3.41 MC/CUMM (3.8-5.5); Red Cell Distribution Width 14.4 % (9.3-17.3); White Blood Count 15.5 T/CUMM (4-12)
[2018-07-26] MEDS: ASPIRIN EC 325 MG TABLET PO SCH (09:23)
[2018-07-26] MEDS: CLOTRIMAZOLE 10 MG TROCHE PO SCH ×3 (09:23→21:07)
[2018-07-26] MEDS: AMOXICILLIN/CLAV 875 MG TABLET PO SCH ×2 (09:23→18:22)
[2018-07-26] MEDS: MULTIVITAMIN (BEROCCA) TABLET PO SCH (09:23)
[2018-07-26] MEDS: PANTOPRAZOLE 40 MG VIAL IV SCH (09:23)
[2018-07-26] MEDS: METOPROLOL TARTRATE 25 MG TABLET PO SCH ×2 (09:24→21:07)
[2018-07-26] MEDS: predniSONE 20 MG TABLET PO SCH (09:24)
[2018-07-26] MEDS: HEPARIN 5,000 UNIT/1 ML VIAL SUBCUT SCH (09:29)
[2018-07-26 09:32] LABS: Calcium 9.3 MG/DL (8.5-10.1); Osmolality,Calculated 295.5 MOS/KG (273-304); Potassium 4.3 MMOL/L (3.5-5.1)
[2018-07-26 09:36] LABS: Band Neutrophils 12 % (0-10); Lymphocytes 4 % (20-55); Platelet Estimate Adequate; Segmented Neutrophils 73 % (50-85); Total Cells Counted 100
[2018-07-26 09:37] LABS: Hypochromasia 1+
[2018-07-26] MEDS ORDERED: TUBERCULIN SKIN TEST 0.1 ML SYRINGE INTRADERM ONE (12:51)
[2018-07-26] MEDS: BECLOMETHASONE 80 MCG/PUFF INHALER 8.7 GM INH SCH (14:23)
[2018-07-26] MEDS: methylPREDNISolone SOD SUC INJ 1,000 MG in SODIUM CHLORIDE 0.9% 100 ML IV SCH (14:26)
[2018-07-27] MEDS: INSULIN REGULAR 100 UNIT/ML SUBCUT SCH ×4 (00:23→18:35)
[2018-07-27] MEDS: AMOXICILLIN/CLAV 875 MG TABLET PO SCH ×2 (06:26→17:24)
[2018-07-27] MEDS ORDERED: CLINDAMYCIN INJ 900 MG in PREMIX 1 EACH IV ONE (06:54)
[2018-07-27] MEDS: IPRATROPIUM 500 MCG/2.5 ML NEB RESP TX SCH ×4 (08:37→19:52)
[2018-07-27] MEDS ORDERED: CLINDAMYCIN INJ 50 ML IV ONE (12:52)
[2018-07-27] MEDS: SODIUM CHLORIDE 0.9% 250 ML IV SCH (13:00)
[2018-07-27] MEDS ORDERED: TISSUE ADHESIVE 1 EACH APPLICATOR TOP ONE (13:34)
[2018-07-27] MEDS ORDERED: PROPOFOL 200 MG/20 ML VIAL IV ONE (14:07)
[2018-07-27] MEDS ORDERED: PHENYLEPHRINE DRIP 20 MG/250 ML PREMIX IV ONE (14:07)
[2018-07-27] MEDS ORDERED: MIDAZOLAM 2 MG/2 ML VIAL ONE (14:08)
[2018-07-27] MEDS ORDERED: SEVOFLURANE 1 UNIT/15 MINUTE INH ONE (14:08)
[2018-07-27] MEDS ORDERED: methylPREDNISolone SOD SUC 125 MG/2 ML VIAL ONE (14:09)
[2018-07-27] MEDS ORDERED: fentaNYL 100 MCG/2 ML VIAL ONE (14:09)
[2018-07-27] MEDS ORDERED: METOPROLOL TARTRATE 5 MG/5 ML VIAL IV ONE (14:09)
[2018-07-27 14:15] LABS: ABG Base Excess 4.3 MMOL/L (-2.5-2.5); ABG HCO3 28.2 MMOL/L (20-26); ABG Oxygen Saturation 95.2 % (95-100); ABG PCO2 37.2 MM HG (35-48); ABG PH 7.482 (7.35-7.45); ABG PO2 77.4 MM HG (80-95); ABG TCO2 24.5 MMOL/L (23-27)
[2018-07-27] MEDS: METOPROLOL TARTRATE 25 MG TABLET PO SCH ×2 (14:59→22:04)
[2018-07-27] MEDS: NON-FORMULARY MEDICATION (Sucroferric Oxyhydroxide [Velphoro Chew Tab] 500 MG) PO SCH ×3 (14:59→22:07)
[2018-07-27] MEDS: CLOTRIMAZOLE 10 MG TROCHE PO SCH ×3 (14:59→22:05)
[2018-07-27] MEDS: ASPIRIN EC 325 MG TABLET PO SCH (15:56)
[2018-07-27] MEDS: BECLOMETHASONE 80 MCG/PUFF INHALER 8.7 GM INH SCH (15:56)
[2018-07-27] MEDS: predniSONE 20 MG TABLET PO SCH (15:56)
[2018-07-27] MEDS: PANTOPRAZOLE 40 MG TABLET PO SCH (15:56)
[2018-07-27] MEDS: MULTIVITAMIN (BEROCCA) TABLET PO SCH (15:56)
[2018-07-27] MEDS: HEPARIN 5,000 UNIT/1 ML VIAL SUBCUT SCH (22:07)
[2018-07-28] MEDS: INSULIN REGULAR 100 UNIT/ML SUBCUT SCH ×3 (01:08→12:26)
[2018-07-28] MEDS: SODIUM CHLORIDE 0.9% 250 ML IV SCH (04:54)
[2018-07-28] MEDS: AMOXICILLIN/CLAV 875 MG TABLET PO SCH (05:57)
[2018-07-28] MEDS: IPRATROPIUM 500 MCG/2.5 ML NEB RESP TX SCH ×2 (07:40→11:42)
[2018-07-28 08:00] LABS: Basophils % 0.2 % (0.0-0.8); Eosinophils % 0.2 % (0.00-10.9); Hematocrit 34.5 VOL% (35.7-47.0); Hemoglobin 11.4 GM/DL (12.0-16.0); Immature Granulocytes % 1.7 %; Immature Granulocytes Absolute 0.45 #; Lymphocytes # 1.4 10*3/uL (1.4-4.0); Lymphocytes % 5.2 % (21.3-54.2); Mean Corpuscular Hemoglobin 33 PG (27-34); Mean Corpuscular Volume 99.1 FL (87-102); Mean Platelet Volume 10.5 FL (9.6-12.0); Monocytes # 1.5 10*3/uL (0.11-0.8); Monocytes % 5.7 % (1.7-12.7); Neutrophils # 23.1 10*3/uL (1.4-7.4); Platelet Count 222 T/CUMM (130-400); Red Blood Count 3.48 MC/CUMM (3.8-5.5); Red Cell Distribution Width 13.9 % (9.3-17.3); White Blood Count 26.5 T/CUMM (4-12)
[2018-07-28 08:22] LABS: Calcium 8.6 MG/DL (8.5-10.1); Potassium 3.8 MMOL/L (3.5-5.1)
[2018-07-28] MEDS: MULTIVITAMIN (BEROCCA) TABLET PO SCH (08:59)
[2018-07-28] MEDS: predniSONE 20 MG TABLET PO SCH (08:59)
[2018-07-28] MEDS: PANTOPRAZOLE 40 MG TABLET PO SCH (08:59)
[2018-07-28] MEDS: METOPROLOL TARTRATE 25 MG TABLET PO SCH (08:59)
[2018-07-28] MEDS: CLOTRIMAZOLE 10 MG TROCHE PO SCH (08:59)
[2018-07-28] MEDS: HEPARIN 5,000 UNIT/1 ML VIAL SUBCUT SCH (08:59)
[2018-07-28] MEDS: NON-FORMULARY MEDICATION (Sucroferric Oxyhydroxide [Velphoro Chew Tab] 500 MG) PO SCH (08:59)
[2018-07-28] MEDS: ASPIRIN EC 325 MG TABLET PO SCH (09:00)
[2018-07-28] MEDS: BECLOMETHASONE 80 MCG/PUFF INHALER 8.7 GM INH SCH (09:00)
[2018-07-28 11:19] LABS: Nucleated Red Blood Cells 2 (0-5); Segmented Neutrophils 95 % (50-85); Total Cells Counted 100
[2018-07-28 11:22] LABS: Anisocytosis 1+; Ovalocytes Few; Platelet Estimate Normal; Polychromasia Slight
[2018-07-28 12:15] VITALS: BP 176/109
== END 2018-07-28 13:14 | DRG 939 ==
LOC: EDUNIT# → EDBD → N.ED 12:54 → N.EDINP 16:54 → N.5E 19:25
PROVIDERS: ADMIT Internal Medicine; ATTEND Internal Medicine

== ENCOUNTER 2018-08-28 17:57 | Inpatient (IN) ==
[2018-08-28] MEDS ORDERED: MORPHINE 4 MG/1 ML VIAL IV STA (18:47)
[2018-08-28] MEDS ORDERED: ALBUTEROL/IPRATROPIUM 3 ML NEB RESP TX STA (18:47)
[2018-08-28] MEDS ORDERED: hydrALAZINE 20 MG/1 ML VIAL IV STA ×2 (18:47→22:02)
[2018-08-28] MEDS ORDERED: ONDANSETRON 4 MG/2 ML VIAL IV STA (18:47)
[2018-08-28] MEDS ORDERED: NITROGLYCERIN 2% OINT 1 INCH/GM PACK TOP STA (18:47)
[2018-08-28] MEDS ORDERED: FUROSEMIDE 100 MG/10 ML VIAL IV STA (18:47)
[2018-08-28 19:19] LABS: INR 0.9; PT Patient Result 9.6 SECS
[2018-08-28 19:31] LABS: Albumin 2.4 G/DL (3.4-5.0); Bilirubin,Total 0.6 MG/DL (0.2-1.0); Calcium 7.5 MG/DL (8.5-10.1); Osmolality,Calculated 290.5 MOS/KG (273-304); Potassium 4.4 MMOL/L (3.5-5.1); Total Protein 5.1 G/DL (6.4-8.3)
[2018-08-28 21:09] LABS: Apearance,Urine CLOUDY (Clear); Bacteria,Urine Moderate /HPF (Few); Bilirubin,Urine Negative (Negative); Blood, Urine Small mg/dL (Negative); Glucose,Urine (UA) >=500 mg/dL (Negative); Ketones,Urine Negative (Negative); Nitrite,Urine Negative (Negative); Protein,Urine 100 MG/DL; RBC,Urine 28 /HPF (0-4); Squamous Epithelial Cell,Urine Many /HPF (0-10); Urine Color Yellow (Yellow); Urine Specific Gravity 1.003 (1.001-1.035); Urine Urobilinogen < 2.0 EU/DL (0.2-1.0); WBC,Urine 59 /HPF (0-6)
[2018-08-28] MEDS ORDERED: cefTRIAXone 1,000 MG in SODIUM CHLORIDE 0.9% 100 ML IV STA (21:10)
[2018-08-28 21:54] LABS: Basophils % 0.2 % (0.0-0.8); Eosinophils # 0.1 10*3/uL (0.0-0.87); Eosinophils % 0.4 % (0.00-10.9); Hematocrit 28.2 VOL% (35.7-47.0); Hemoglobin 8.9 GM/DL (12.0-16.0); Immature Granulocytes % 4.3 %; Immature Granulocytes Absolute 0.63 #; Lymphocytes # 1.8 10*3/uL (1.4-4.0); Lymphocytes % 12.5 % (21.3-54.2); Mean Corpuscular HGB Conc 31.6 GM/DL (32-36); Mean Corpuscular Hemoglobin 34 PG (27-34); Mean Corpuscular Volume 107.6 FL (87-102); Mean Platelet Volume 9.9 FL (9.6-12.0); Monocytes # 1.1 10*3/uL (0.11-0.8); Monocytes % 7.2 % (1.7-12.7); Neutrophils % 75.4 % (38.7-73.9); Platelet Count 236 T/CUMM (130-400); Red Blood Count 2.62 MC/CUMM (3.8-5.5); Red Cell Distribution Width 15.2 % (9.3-17.3); White Blood Count 14.6 T/CUMM (4-12)
[2018-08-28 23:12] LABS: Anisocytosis Slight; Hypochromasia Slight; Lymphocytes 16 % (20-55); Metamyelocytes 1 %; Myelocytes 2 %; Platelet Estimate Adequate; Segmented Neutrophils 78 % (50-85); Total Cells Counted 100
[2018-08-29] MEDS ORDERED: guaiFENesin/DM ER 600-30 MG TABLET PO PRN (00:37)
[2018-08-29] MEDS ORDERED: ONDANSETRON 4 MG TABLET PO PRN (00:37)
[2018-08-29] MEDS ORDERED: GLUCAGON 1 MG VIAL IM PRN (00:37)
[2018-08-29] MEDS ORDERED: DOCUSATE SODIUM 100 MG CAPSULE PO PRN (00:37)
[2018-08-29] MEDS ORDERED: DEXTROSE 50% 25 GM/50 ML SYRINGE IV PRN (00:37)
[2018-08-29] MEDS ORDERED: LEVOFLOXACIN INJ 750 MG in PREMIX 1 EACH IV ONE (00:37)
[2018-08-29] MEDS ORDERED: MECLIZINE 25 MG TABLET PO PRN (00:37)
[2018-08-29] MEDS: METOPROLOL TARTRATE 25 MG TABLET PO SCH ×3 (01:25→22:15)
[2018-08-29] MEDS: PROMETHAZINE 25 MG TABLET PO SCH ×3 (01:25→12:35)
[2018-08-29 04:24] LABS: Basophils # 0.1 10*3/uL (0.0-0.2); Basophils % 0.3 % (0.0-0.8); Eosinophils % 0.2 % (0.00-10.9); Hematocrit 28.2 VOL% (35.7-47.0); Hemoglobin 8.8 GM/DL (12.0-16.0); Immature Granulocytes % 2.8 %; Immature Granulocytes Absolute 0.56 #; Lymphocytes # 1.5 10*3/uL (1.4-4.0); Lymphocytes % 7.7 % (21.3-54.2); Mean Corpuscular HGB Conc 31.2 GM/DL (32-36); Mean Corpuscular Hemoglobin 34 PG (27-34); Mean Corpuscular Volume 107.2 FL (87-102); Mean Platelet Volume 9.6 FL (9.6-12.0); Monocytes # 1.3 10*3/uL (0.11-0.8); Monocytes % 6.5 % (1.7-12.7); Neutrophils # 16.5 10*3/uL (1.4-7.4); Neutrophils % 82.5 % (38.7-73.9); Platelet Count 223 T/CUMM (130-400); Red Blood Count 2.63 MC/CUMM (3.8-5.5); Red Cell Distribution Width 15.5 % (9.3-17.3)
[2018-08-29] MEDS: ALBUTEROL/IPRATROPIUM 3 ML NEB RESP TX PRN ×2 (04:44→22:30)
[2018-08-29 04:48] LABS: Band Neutrophils 2 % (0-10); Lymphocytes 14 % (20-55); Segmented Neutrophils 81 % (50-85); Total Cells Counted 100
[2018-08-29 04:49] LABS: Hypochromasia 1+; Platelet Estimate Adequate
[2018-08-29 04:55] LABS: Calcium 7.8 MG/DL (8.5-10.1); Osmolality,Calculated 291.4 MOS/KG (273-304); Potassium 4.4 MMOL/L (3.5-5.1)
[2018-08-29 04:59] LABS: Risk Ratio 1.78; VLDL CHOLESTEROL 14.8 MG/DL
[2018-08-29] MEDS: ARFORMOTEROL 15 MCG/2 ML NEB RESP TX SCH ×2 (07:30→19:20)
[2018-08-29] MEDS: BUDESONIDE 0.5 MG/2 ML NEB RESP TX SCH ×2 (07:31→19:20)
[2018-08-29] MEDS: ASPIRIN EC 325 MG TABLET PO SCH (08:19)
[2018-08-29] MEDS: PANTOPRAZOLE 40 MG TABLET PO SCH (08:19)
[2018-08-29] MEDS: FUROSEMIDE 40 MG/4 ML VIAL IV SCH ×2 (08:19→16:14)
[2018-08-29] MEDS: VALSARTAN 160 MG TABLET PO SCH (08:19)
[2018-08-29] MEDS: INSULIN LISPRO 100 UNIT/ML SUBCUT SCH ×4 (08:44→22:39)
[2018-08-29] MEDS ORDERED: NON-FORMULARY MEDICATION (Sucroferric Oxyhydroxide [Velphoro Chew Tab] 500 MG) PO SCH (09:00)
[2018-08-29] MEDS ORDERED: NON-FORMULARY MEDICATION (Prorenal D 1 TABLET) PO SCH (09:00)
[2018-08-29] MEDS: hydrALAZINE 20 MG/1 ML VIAL IV PRN ×2 (13:04→22:30)
[2018-08-29 21:11] LABS: Hepatitis A Ab IgM Quant 0.14 Index; Hepatitis A Ab IgM Result Negative (Negative); Hepatitis B Core IgM Quant 0.12 Index; Hepatitis B Core IgM Result Negative (Negative); Hepatitis B Surface Ag Quant < 0.10 Index; Hepatitis B Surface Ag Result Negative (Negative); Hepatitis C Virus Ab Quant < 0.02 Index; Hepatitis C Virus Ab Result Negative (Negative)
[2018-08-29] MEDS ORDERED: LORazepam 2 MG/1 ML VIAL IV ONE (22:24)
[2018-08-29] MEDS: cefTRIAXone 1,000 MG in SYRINGE 1 EACH IV SCH (22:33)
[2018-08-29 23:28] LABS: ABG Base Excess 3.7 MMOL/L (-2.5-2.5); ABG HCO3 27.8 MMOL/L (20-26); ABG Oxygen Saturation 99.5 % (95-100); ABG PCO2 34.1 MM HG (35-48); ABG PH 7.503 (7.35-7.45); ABG TCO2 24.6 MMOL/L (23-27); Allen Test Positive
[2018-08-29] MEDS ORDERED: ETOMIDATE 20 MG/10 ML VIAL IV ONE (23:50)
[2018-08-29] MEDS ORDERED: SUCCINYLCHOLINE 200 MG/10 ML VIAL ONE (23:50)
[2018-08-30] MEDS: METOPROLOL TARTRATE 25 MG TABLET PO SCH ×4 (00:02→20:36)
[2018-08-30 00:22] LABS: Basophils % 0.2 % (0.0-0.8); Eosinophils % 0.2 % (0.00-10.9); Hemoglobin 8.5 GM/DL (12.0-16.0); Immature Granulocytes % 1.8 %; Immature Granulocytes Absolute 0.34 #; Lymphocytes # 1.3 10*3/uL (1.4-4.0); Lymphocytes % 6.8 % (21.3-54.2); Mean Corpuscular HGB Conc 31.5 GM/DL (32-36); Mean Corpuscular Hemoglobin 34 PG (27-34); Mean Corpuscular Volume 106.3 FL (87-102); Mean Platelet Volume 9.6 FL (9.6-12.0); Monocytes # 1.1 10*3/uL (0.11-0.8); Monocytes % 5.9 % (1.7-12.7); Neutrophils # 16.4 10*3/uL (1.4-7.4); Neutrophils % 85.1 % (38.7-73.9); Platelet Count 199 T/CUMM (130-400); Red Blood Count 2.54 MC/CUMM (3.8-5.5); Red Cell Distribution Width 15.1 % (9.3-17.3); White Blood Count 19.3 T/CUMM (4-12)
[2018-08-30 00:49] LABS: Alanine Aminotransferase 31 U/L (13-56); Albumin 2.3 G/DL (3.4-5.0); Alkaline Phosphatase 69 U/L (45-117); Aspartate Amino Transferase 19 U/L (0-37); Blood Urea Nitrogen 30 MG/DL (7-18); Calcium 7.7 MG/DL (8.5-10.1); Glucose 125 MG/DL (74-106); Osmolality,Calculated 279.8 MOS/KG (273-304); Potassium 4.3 MMOL/L (3.5-5.1); Sodium 137 MMOL/L (136-145)
[2018-08-30 01:11] LABS: Troponin I 0.154 NG/ML (0.00-0.045)
[2018-08-30] MEDS: PROMETHAZINE 25 MG TABLET PO SCH ×5 (01:15→19:03)
[2018-08-30 04:16] LABS: Basophils # 0.1 10*3/uL (0.0-0.2); Basophils % 0.3 % (0.0-0.8); Eosinophils % 0.2 % (0.00-10.9); Hematocrit 27.1 VOL% (35.7-47.0); Hemoglobin 8.4 GM/DL (12.0-16.0); Immature Granulocytes % 1.8 %; Immature Granulocytes Absolute 0.33 #; Lymphocytes # 1.3 10*3/uL (1.4-4.0); Lymphocytes % 6.9 % (21.3-54.2); Mean Corpuscular Hemoglobin 33 PG (27-34); Mean Corpuscular Volume 106.7 FL (87-102); Mean Platelet Volume 9.7 FL (9.6-12.0); Monocytes # 1.1 10*3/uL (0.11-0.8); Monocytes % 5.8 % (1.7-12.7); Neutrophils # 15.6 10*3/uL (1.4-7.4); Platelet Count 198 T/CUMM (130-400); Red Blood Count 2.54 MC/CUMM (3.8-5.5); Red Cell Distribution Width 15.1 % (9.3-17.3); White Blood Count 18.3 T/CUMM (4-12)
[2018-08-30 04:43] LABS: Calcium 7.9 MG/DL (8.5-10.1); Osmolality,Calculated 282.7 MOS/KG (273-304); Potassium 4.1 MMOL/L (3.5-5.1)
[2018-08-30] MEDS: hydrALAZINE 20 MG/1 ML VIAL IV PRN (06:08)
[2018-08-30] MEDS: BUDESONIDE 0.5 MG/2 ML NEB RESP TX SCH ×2 (07:28→19:26)
[2018-08-30] MEDS: ARFORMOTEROL 15 MCG/2 ML NEB RESP TX SCH ×2 (07:28→19:26)
[2018-08-30] MEDS: INSULIN LISPRO 100 UNIT/ML SUBCUT SCH ×4 (08:12→20:36)
[2018-08-30] MEDS: FUROSEMIDE 40 MG/4 ML VIAL IV SCH ×2 (09:46→17:19)
[2018-08-30] MEDS: ASPIRIN EC 325 MG TABLET PO SCH ×2 (09:47→11:15)
[2018-08-30] MEDS: PANTOPRAZOLE 40 MG TABLET PO SCH ×2 (09:47→11:15)
[2018-08-30] MEDS: VALSARTAN 160 MG TABLET PO SCH ×2 (09:47→11:15)
[2018-08-30] MEDS: ENOXAPARIN 30 MG/0.3 ML SYRINGE SUBCUT SCH (12:20)
[2018-08-30] MEDS ORDERED: FUROSEMIDE 20 MG/2 ML VIAL ONE (17:11)
[2018-08-30] MEDS: cefTRIAXone 1,000 MG in SYRINGE 1 EACH IV SCH (20:35)
[2018-08-30] MEDS ORDERED: FUROSEMIDE 40 MG/4 ML VIAL IV ONE (23:50)
[2018-08-31] MEDS: PROMETHAZINE 25 MG TABLET PO SCH ×4 (01:23→19:37)
[2018-08-31] MEDS: LEVOFLOXACIN INJ 500 MG in PREMIX 1 EACH IV SCH (01:24)
[2018-08-31 04:45] LABS: Basophils % 0.2 % (0.0-0.8); Eosinophils # 0.1 10*3/uL (0.0-0.87); Eosinophils % 0.8 % (0.00-10.9); Hematocrit 23.9 VOL% (35.7-47.0); Hemoglobin 7.3 GM/DL (12.0-16.0); Immature Granulocytes % 1.3 %; Immature Granulocytes Absolute 0.17 #; Lymphocytes # 1.2 10*3/uL (1.4-4.0); Mean Corpuscular HGB Conc 30.5 GM/DL (32-36); Mean Corpuscular Hemoglobin 33 PG (27-34); Mean Corpuscular Volume 108.1 FL (87-102); Mean Platelet Volume 9.7 FL (9.6-12.0); Monocytes # 0.9 10*3/uL (0.11-0.8); Monocytes % 6.9 % (1.7-12.7); Neutrophils # 11.1 10*3/uL (1.4-7.4); Neutrophils % 81.8 % (38.7-73.9); Platelet Count 172 T/CUMM (130-400); Red Blood Count 2.21 MC/CUMM (3.8-5.5); White Blood Count 13.6 T/CUMM (4-12)
[2018-08-31 04:56] LABS: Calcium 8.2 MG/DL (8.5-10.1); Osmolality,Calculated 282.8 MOS/KG (273-304); Potassium 4.3 MMOL/L (3.5-5.1)
[2018-08-31] MEDS: ARFORMOTEROL 15 MCG/2 ML NEB RESP TX SCH ×2 (07:57→19:38)
[2018-08-31] MEDS: BUDESONIDE 0.5 MG/2 ML NEB RESP TX SCH ×2 (07:57→19:38)
[2018-08-31] MEDS: INSULIN LISPRO 100 UNIT/ML SUBCUT SCH ×4 (14:05→22:20)
[2018-08-31] MEDS: ASPIRIN EC 325 MG TABLET PO SCH (14:06)
[2018-08-31] MEDS: METOPROLOL TARTRATE 25 MG TABLET PO SCH ×2 (14:06→22:15)
[2018-08-31] MEDS: VALSARTAN 160 MG TABLET PO SCH (14:06)
[2018-08-31] MEDS: ENOXAPARIN 30 MG/0.3 ML SYRINGE SUBCUT SCH (14:07)
[2018-08-31] MEDS: PANTOPRAZOLE 40 MG TABLET PO SCH (14:07)
[2018-08-31] MEDS: FUROSEMIDE 40 MG/4 ML VIAL IV SCH ×2 (14:09→17:23)
[2018-08-31] MEDS: cefTRIAXone 1,000 MG in SYRINGE 1 EACH IV SCH (22:14)
[2018-09-01] MEDS: PROMETHAZINE 25 MG TABLET PO SCH ×4 (00:27→18:48)
[2018-09-01 06:22] LABS: Basophils % 0.2 % (0.0-0.8); Eosinophils # 0.1 10*3/uL (0.0-0.87); Eosinophils % 0.6 % (0.00-10.9); Hematocrit 24.1 VOL% (35.7-47.0); Hemoglobin 7.4 GM/DL (12.0-16.0); Immature Granulocytes % 1.2 %; Immature Granulocytes Absolute 0.16 #; Lymphocytes # 1.2 10*3/uL (1.4-4.0); Lymphocytes % 9.7 % (21.3-54.2); Mean Corpuscular HGB Conc 30.7 GM/DL (32-36); Mean Corpuscular Hemoglobin 34 PG (27-34); Mean Corpuscular Volume 109.5 FL (87-102); Mean Platelet Volume 9.5 FL (9.6-12.0); Monocytes # 1.3 10*3/uL (0.11-0.8); Monocytes % 9.9 % (1.7-12.7); Neutrophils # 10.1 10*3/uL (1.4-7.4); Neutrophils % 78.4 % (38.7-73.9); Platelet Count 169 T/CUMM (130-400); Red Cell Distribution Width 14.6 % (9.3-17.3); White Blood Count 12.8 T/CUMM (4-12)
[2018-09-01 06:38] LABS: Calcium 7.7 MG/DL (8.5-10.1); Potassium 4.3 MMOL/L (3.5-5.1)
[2018-09-01] MEDS: ARFORMOTEROL 15 MCG/2 ML NEB RESP TX SCH ×2 (07:16→19:25)
[2018-09-01] MEDS: BUDESONIDE 0.5 MG/2 ML NEB RESP TX SCH ×2 (07:17→19:25)
[2018-09-01] MEDS: METOPROLOL TARTRATE 25 MG TABLET PO SCH ×2 (09:09→20:53)
[2018-09-01] MEDS: VALSARTAN 160 MG TABLET PO SCH (09:09)
[2018-09-01] MEDS: ASPIRIN EC 325 MG TABLET PO SCH (09:09)
[2018-09-01] MEDS: PANTOPRAZOLE 40 MG TABLET PO SCH (09:09)
[2018-09-01] MEDS: FUROSEMIDE 40 MG/4 ML VIAL IV SCH ×2 (09:10→16:56)
[2018-09-01] MEDS: INSULIN LISPRO 100 UNIT/ML SUBCUT SCH ×4 (09:48→20:48)
[2018-09-01] MEDS: ENOXAPARIN 30 MG/0.3 ML SYRINGE SUBCUT SCH (12:33)
[2018-09-01] MEDS: cefTRIAXone 1,000 MG in SYRINGE 1 EACH IV SCH (20:53)
[2018-09-02] MEDS: PROMETHAZINE 25 MG TABLET PO SCH ×4 (02:35→18:38)
[2018-09-02] MEDS: LEVOFLOXACIN INJ 500 MG in PREMIX 1 EACH IV SCH (02:35)
[2018-09-02 06:10] LABS: Basophils % 0.2 % (0.0-0.8); Eosinophils # 0.1 10*3/uL (0.0-0.87); Eosinophils % 0.8 % (0.00-10.9); Hematocrit 24.6 VOL% (35.7-47.0); Hemoglobin 7.7 GM/DL (12.0-16.0); Immature Granulocytes % 1.5 %; Lymphocytes # 1.4 10*3/uL (1.4-4.0); Lymphocytes % 10.1 % (21.3-54.2); Mean Corpuscular HGB Conc 31.3 GM/DL (32-36); Mean Corpuscular Hemoglobin 34 PG (27-34); Mean Platelet Volume 9.7 FL (9.6-12.0); Monocytes # 1.3 10*3/uL (0.11-0.8); Monocytes % 9.6 % (1.7-12.7); Neutrophils # 10.4 10*3/uL (1.4-7.4); Neutrophils % 77.8 % (38.7-73.9); Platelet Count 190 T/CUMM (130-400); Red Cell Distribution Width 14.5 % (9.3-17.3); White Blood Count 13.3 T/CUMM (4-12)
[2018-09-02 06:45] LABS: Potassium 4.3 MMOL/L (3.5-5.1)
[2018-09-02] MEDS: ARFORMOTEROL 15 MCG/2 ML NEB RESP TX SCH ×2 (07:33→19:19)
[2018-09-02] MEDS: BUDESONIDE 0.5 MG/2 ML NEB RESP TX SCH ×2 (07:33→19:19)
[2018-09-02] MEDS: INSULIN LISPRO 100 UNIT/ML SUBCUT SCH ×4 (07:52→22:03)
[2018-09-02] MEDS: FUROSEMIDE 40 MG/4 ML VIAL IV SCH ×2 (09:18→16:46)
[2018-09-02] MEDS: ASPIRIN EC 325 MG TABLET PO SCH (09:19)
[2018-09-02] MEDS: VALSARTAN 160 MG TABLET PO SCH (09:19)
[2018-09-02] MEDS: PANTOPRAZOLE 40 MG TABLET PO SCH (09:19)
[2018-09-02] MEDS: METOPROLOL TARTRATE 25 MG TABLET PO SCH ×2 (09:19→21:18)
[2018-09-02] MEDS: ENOXAPARIN 30 MG/0.3 ML SYRINGE SUBCUT SCH (12:41)
[2018-09-02] MEDS: cefTRIAXone 1,000 MG in SYRINGE 1 EACH IV SCH (21:22)
[2018-09-03] MEDS: PROMETHAZINE 25 MG TABLET PO SCH ×2 (00:27→06:55)
[2018-09-03] MEDS: hydrALAZINE 20 MG/1 ML VIAL IV PRN (00:31)
[2018-09-03 04:59] LABS: Basophils % 0.2 % (0.0-0.8); Eosinophils # 0.1 10*3/uL (0.0-0.87); Hematocrit 23.9 VOL% (35.7-47.0); Hemoglobin 7.6 GM/DL (12.0-16.0); Immature Granulocytes % 1.6 %; Immature Granulocytes Absolute 0.19 #; Lymphocytes # 1.7 10*3/uL (1.4-4.0); Lymphocytes % 13.6 % (21.3-54.2); Mean Corpuscular HGB Conc 31.8 GM/DL (32-36); Mean Corpuscular Hemoglobin 34 PG (27-34); Mean Corpuscular Volume 105.3 FL (87-102); Mean Platelet Volume 9.8 FL (9.6-12.0); Monocytes # 1.3 10*3/uL (0.11-0.8); Monocytes % 10.8 % (1.7-12.7); Neutrophils # 8.9 10*3/uL (1.4-7.4); Neutrophils % 72.8 % (38.7-73.9); Platelet Count 211 T/CUMM (130-400); Red Blood Count 2.27 MC/CUMM (3.8-5.5); Red Cell Distribution Width 14.4 % (9.3-17.3); White Blood Count 12.3 T/CUMM (4-12)
[2018-09-03 05:03] LABS: Osmolality,Calculated 282.2 MOS/KG (273-304); Potassium 4.5 MMOL/L (3.5-5.1)
[2018-09-03] MEDS: ACETAMINOPHEN 325 MG TABLET PO PRN (05:15)
[2018-09-03] MEDS: BUDESONIDE 0.5 MG/2 ML NEB RESP TX SCH ×2 (07:26→18:50)
[2018-09-03] MEDS: ARFORMOTEROL 15 MCG/2 ML NEB RESP TX SCH ×2 (07:26→18:50)
[2018-09-03] MEDS: FUROSEMIDE 40 MG/4 ML VIAL IV SCH ×2 (08:04→15:57)
[2018-09-03] MEDS: ASPIRIN EC 325 MG TABLET PO SCH (08:05)
[2018-09-03] MEDS: VALSARTAN 160 MG TABLET PO SCH (08:05)
[2018-09-03] MEDS: METOPROLOL TARTRATE 25 MG TABLET PO SCH ×2 (08:05→20:55)
[2018-09-03] MEDS: PANTOPRAZOLE 40 MG TABLET PO SCH (08:05)
[2018-09-03] MEDS: INSULIN LISPRO 100 UNIT/ML SUBCUT SCH ×4 (08:49→20:55)
[2018-09-03] MEDS ORDERED: PROMETHAZINE 25 MG TABLET PO PRN (12:14)
[2018-09-03] MEDS: ENOXAPARIN 30 MG/0.3 ML SYRINGE SUBCUT SCH (14:11)
[2018-09-03] MEDS: HEPARIN 5,000 UNIT/1 ML VIAL SUBCUT SCH (20:55)
[2018-09-04] MEDS: LEVOFLOXACIN INJ 500 MG in PREMIX 1 EACH IV SCH (00:21)
[2018-09-04 05:12] LABS: Basophils % 0.3 % (0.0-0.8); Eosinophils # 0.1 10*3/uL (0.0-0.87); Eosinophils % 0.9 % (0.00-10.9); Hematocrit 24.4 VOL% (35.7-47.0); Hemoglobin 7.8 GM/DL (12.0-16.0); Immature Granulocytes Absolute 0.11 #; Lymphocytes # 1.6 10*3/uL (1.4-4.0); Lymphocytes % 14.2 % (21.3-54.2); Mean Corpuscular Hemoglobin 34 PG (27-34); Mean Corpuscular Volume 104.7 FL (87-102); Mean Platelet Volume 9.9 FL (9.6-12.0); Monocytes # 1.2 10*3/uL (0.11-0.8); Monocytes % 11.2 % (1.7-12.7); Neutrophils % 72.4 % (38.7-73.9); Platelet Count 246 T/CUMM (130-400); Red Blood Count 2.33 MC/CUMM (3.8-5.5); Red Cell Distribution Width 14.7 % (9.3-17.3)
[2018-09-04 05:23] LABS: Calcium 8.3 MG/DL (8.5-10.1); Potassium 4.5 MMOL/L (3.5-5.1)
[2018-09-04] MEDS: BUDESONIDE 0.5 MG/2 ML NEB RESP TX SCH ×2 (07:52→19:05)
[2018-09-04] MEDS: INSULIN LISPRO 100 UNIT/ML SUBCUT SCH ×4 (07:52→22:06)
[2018-09-04] MEDS: ARFORMOTEROL 15 MCG/2 ML NEB RESP TX SCH ×2 (07:57→19:05)
[2018-09-04] MEDS: FUROSEMIDE 40 MG/4 ML VIAL IV SCH ×2 (08:04→16:27)
[2018-09-04] MEDS: METOPROLOL TARTRATE 25 MG TABLET PO SCH ×2 (09:17→22:02)
[2018-09-04] MEDS: ASPIRIN EC 325 MG TABLET PO SCH (09:17)
[2018-09-04] MEDS: ACETAMINOPHEN 325 MG TABLET PO PRN ×2 (09:18→13:33)
[2018-09-04] MEDS: VALSARTAN 160 MG TABLET PO SCH (09:21)
[2018-09-04] MEDS: PANTOPRAZOLE 40 MG TABLET PO SCH (09:22)
[2018-09-04] MEDS: HEPARIN 5,000 UNIT/1 ML VIAL SUBCUT SCH ×2 (09:22→22:02)
[2018-09-05 05:31] LABS: Basophils % 0.2 % (0.0-0.8); Eosinophils # 0.1 10*3/uL (0.0-0.87); Eosinophils % 0.8 % (0.00-10.9); Hematocrit 23.6 VOL% (35.7-47.0); Hemoglobin 7.5 GM/DL (12.0-16.0); Immature Granulocytes % 0.9 %; Immature Granulocytes Absolute 0.12 #; Lymphocytes # 1.7 10*3/uL (1.4-4.0); Lymphocytes % 12.9 % (21.3-54.2); Mean Corpuscular HGB Conc 31.8 GM/DL (32-36); Mean Corpuscular Hemoglobin 34 PG (27-34); Mean Corpuscular Volume 105.4 FL (87-102); Mean Platelet Volume 9.8 FL (9.6-12.0); Monocytes # 1.2 10*3/uL (0.11-0.8); Monocytes % 9.4 % (1.7-12.7); Neutrophils # 9.7 10*3/uL (1.4-7.4); Neutrophils % 75.8 % (38.7-73.9); Platelet Count 266 T/CUMM (130-400); Red Blood Count 2.24 MC/CUMM (3.8-5.5); Red Cell Distribution Width 14.6 % (9.3-17.3); White Blood Count 12.8 T/CUMM (4-12)
[2018-09-05 05:40] LABS: Calcium 7.9 MG/DL (8.5-10.1); Osmolality,Calculated 287.7 MOS/KG (273-304); Potassium 4.8 MMOL/L (3.5-5.1)
[2018-09-05] MEDS: ARFORMOTEROL 15 MCG/2 ML NEB RESP TX SCH ×2 (07:12→19:40)
[2018-09-05] MEDS: BUDESONIDE 0.5 MG/2 ML NEB RESP TX SCH ×2 (07:12→19:40)
[2018-09-05] MEDS: PANTOPRAZOLE 40 MG TABLET PO SCH (08:56)
[2018-09-05] MEDS: ASPIRIN EC 325 MG TABLET PO SCH (09:00)
[2018-09-05] MEDS: METOPROLOL TARTRATE 25 MG TABLET PO SCH ×2 (09:00→20:33)
[2018-09-05] MEDS: VALSARTAN 160 MG TABLET PO SCH (09:00)
[2018-09-05] MEDS: HEPARIN 5,000 UNIT/1 ML VIAL SUBCUT SCH ×2 (09:00→20:31)
[2018-09-05] MEDS: FUROSEMIDE 40 MG/4 ML VIAL IV SCH ×2 (09:12→17:24)
[2018-09-05] MEDS ORDERED: SODIUM CHLORIDE 0.9% 1,000 ML IV PRN (09:28)
[2018-09-05] MEDS: INSULIN LISPRO 100 UNIT/ML SUBCUT SCH ×3 (12:30→17:25)
[2018-09-06] MEDS: INSULIN LISPRO 100 UNIT/ML SUBCUT SCH ×5 (00:32→22:03)
[2018-09-06] MEDS: LEVOFLOXACIN INJ 500 MG in PREMIX 1 EACH IV SCH (01:44)
[2018-09-06 05:14] LABS: Basophils % 0.3 % (0.0-0.8); Eosinophils # 0.1 10*3/uL (0.0-0.87); Eosinophils % 1.1 % (0.00-10.9); Hematocrit 29.9 VOL% (35.7-47.0); Hemoglobin 9.5 GM/DL (12.0-16.0); Immature Granulocytes % 0.9 %; Immature Granulocytes Absolute 0.11 #; Lymphocytes # 1.7 10*3/uL (1.4-4.0); Lymphocytes % 13.6 % (21.3-54.2); Mean Corpuscular HGB Conc 31.8 GM/DL (32-36); Mean Corpuscular Hemoglobin 31 PG (27-34); Mean Corpuscular Volume 98.4 FL (87-102); Mean Platelet Volume 9.6 FL (9.6-12.0); Monocytes # 1.3 10*3/uL (0.11-0.8); Monocytes % 10.6 % (1.7-12.7); Neutrophils % 73.5 % (38.7-73.9); Platelet Count 261 T/CUMM (130-400); Red Blood Count 3.04 MC/CUMM (3.8-5.5); Red Cell Distribution Width 20.1 % (9.3-17.3); White Blood Count 12.2 T/CUMM (4-12)
[2018-09-06] MEDS: ARFORMOTEROL 15 MCG/2 ML NEB RESP TX SCH ×2 (07:28→19:31)
[2018-09-06] MEDS: BUDESONIDE 0.5 MG/2 ML NEB RESP TX SCH ×2 (07:28→19:31)
[2018-09-06] MEDS: VALSARTAN 160 MG TABLET PO SCH (09:07)
[2018-09-06] MEDS: METOPROLOL TARTRATE 25 MG TABLET PO SCH ×2 (09:07→20:20)
[2018-09-06] MEDS: ASPIRIN EC 325 MG TABLET PO SCH (09:07)
[2018-09-06] MEDS: PANTOPRAZOLE 40 MG TABLET PO SCH (09:07)
[2018-09-06] MEDS: HEPARIN 5,000 UNIT/1 ML VIAL SUBCUT SCH ×2 (09:09→20:22)
[2018-09-06] MEDS: FUROSEMIDE 40 MG/4 ML VIAL IV SCH ×2 (09:15→17:32)
[2018-09-06] MEDS ORDERED: TUBERCULIN SKIN TEST 0.1 ML SYRINGE INTRADERM ONE (09:49)
[2018-09-06] MEDS: ACETAMINOPHEN 325 MG TABLET PO PRN ×2 (10:02→20:20)
[2018-09-07 06:51] LABS: Basophils % 0.4 % (0.0-0.8); Eosinophils # 0.2 10*3/uL (0.0-0.87); Eosinophils % 1.5 % (0.00-10.9); Hematocrit 28.8 VOL% (35.7-47.0); Hemoglobin 9.3 GM/DL (12.0-16.0); Immature Granulocytes Absolute 0.11 #; Lymphocytes % 17.6 % (21.3-54.2); Mean Corpuscular HGB Conc 32.3 GM/DL (32-36); Mean Corpuscular Hemoglobin 31 PG (27-34); Mean Corpuscular Volume 97.3 FL (87-102); Mean Platelet Volume 9.5 FL (9.6-12.0); Monocytes # 1.2 10*3/uL (0.11-0.8); Monocytes % 10.9 % (1.7-12.7); Neutrophils # 7.9 10*3/uL (1.4-7.4); Neutrophils % 68.6 % (38.7-73.9); Platelet Count 273 T/CUMM (130-400); Red Blood Count 2.96 MC/CUMM (3.8-5.5); Red Cell Distribution Width 19.7 % (9.3-17.3); White Blood Count 11.4 T/CUMM (4-12)
[2018-09-07 06:57] LABS: Calcium 8.4 MG/DL (8.5-10.1); Osmolality,Calculated 278.2 MOS/KG (273-304); Potassium 4.4 MMOL/L (3.5-5.1)
[2018-09-07] MEDS: INSULIN LISPRO 100 UNIT/ML SUBCUT SCH ×4 (07:40→23:58)
[2018-09-07] MEDS: ARFORMOTEROL 15 MCG/2 ML NEB RESP TX SCH ×2 (07:52→18:42)
[2018-09-07] MEDS: BUDESONIDE 0.5 MG/2 ML NEB RESP TX SCH ×2 (07:53→18:42)
[2018-09-07] MEDS: METOPROLOL TARTRATE 25 MG TABLET PO SCH ×2 (08:29→20:43)
[2018-09-07] MEDS: ASPIRIN EC 325 MG TABLET PO SCH (08:29)
[2018-09-07] MEDS: VALSARTAN 160 MG TABLET PO SCH (08:29)
[2018-09-07] MEDS: HEPARIN 5,000 UNIT/1 ML VIAL SUBCUT SCH ×2 (08:29→20:43)
[2018-09-07] MEDS: PANTOPRAZOLE 40 MG TABLET PO SCH (08:29)
[2018-09-07] MEDS: FUROSEMIDE 40 MG/4 ML VIAL IV SCH (10:58)
[2018-09-07] MEDS: GABAPENTIN 100 MG CAPSULE PO SCH (20:43)
[2018-09-08 04:36] LABS: Basophils # 0.1 10*3/uL (0.0-0.2); Basophils % 0.5 % (0.0-0.8); Eosinophils # 0.2 10*3/uL (0.0-0.87); Eosinophils % 1.8 % (0.00-10.9); Hematocrit 28.4 VOL% (35.7-47.0); Hemoglobin 9.2 GM/DL (12.0-16.0); Immature Granulocytes % 0.8 %; Immature Granulocytes Absolute 0.08 #; Lymphocytes # 1.8 10*3/uL (1.4-4.0); Lymphocytes % 17.9 % (21.3-54.2); Mean Corpuscular HGB Conc 32.4 GM/DL (32-36); Mean Corpuscular Hemoglobin 32 PG (27-34); Mean Corpuscular Volume 97.3 FL (87-102); Mean Platelet Volume 9.5 FL (9.6-12.0); Monocytes # 1.3 10*3/uL (0.11-0.8); Monocytes % 12.7 % (1.7-12.7); Neutrophils # 6.8 10*3/uL (1.4-7.4); Neutrophils % 66.3 % (38.7-73.9); Platelet Count 280 T/CUMM (130-400); Red Blood Count 2.92 MC/CUMM (3.8-5.5); Red Cell Distribution Width 18.9 % (9.3-17.3); White Blood Count 10.2 T/CUMM (4-12)
[2018-09-08 05:31] LABS: Calcium 8.5 MG/DL (8.5-10.1); Osmolality,Calculated 273.2 MOS/KG (273-304); Potassium 4.4 MMOL/L (3.5-5.1)
[2018-09-08] MEDS: ARFORMOTEROL 15 MCG/2 ML NEB RESP TX SCH ×2 (07:59→19:54)
[2018-09-08] MEDS: BUDESONIDE 0.5 MG/2 ML NEB RESP TX SCH ×2 (08:00→19:54)
[2018-09-08] MEDS: HEPARIN 5,000 UNIT/1 ML VIAL SUBCUT SCH ×2 (08:57→20:55)
[2018-09-08] MEDS: METOPROLOL TARTRATE 25 MG TABLET PO SCH ×2 (08:58→20:54)
[2018-09-08] MEDS: ACETAMINOPHEN 325 MG TABLET PO PRN (08:58)
[2018-09-08] MEDS: VALSARTAN 160 MG TABLET PO SCH (08:58)
[2018-09-08] MEDS: ASPIRIN EC 325 MG TABLET PO SCH (08:58)
[2018-09-08] MEDS: PANTOPRAZOLE 40 MG TABLET PO SCH (08:58)
[2018-09-08] MEDS: INSULIN LISPRO 100 UNIT/ML SUBCUT SCH ×4 (09:53→21:07)
[2018-09-08] MEDS: GABAPENTIN 100 MG CAPSULE PO SCH (20:54)
[2018-09-09] MEDS: BUDESONIDE 0.5 MG/2 ML NEB RESP TX SCH ×2 (07:45→19:49)
[2018-09-09] MEDS: ARFORMOTEROL 15 MCG/2 ML NEB RESP TX SCH ×2 (07:45→19:49)
[2018-09-09] MEDS: VALSARTAN 160 MG TABLET PO SCH (08:16)
[2018-09-09] MEDS: ASPIRIN EC 325 MG TABLET PO SCH (08:16)
[2018-09-09] MEDS: HEPARIN 5,000 UNIT/1 ML VIAL SUBCUT SCH ×2 (08:16→21:01)
[2018-09-09] MEDS: PANTOPRAZOLE 40 MG TABLET PO SCH (08:17)
[2018-09-09] MEDS: METOPROLOL TARTRATE 25 MG TABLET PO SCH ×2 (08:17→21:03)
[2018-09-09] MEDS: INSULIN LISPRO 100 UNIT/ML SUBCUT SCH ×3 (11:19→21:03)
[2018-09-09] MEDS: GABAPENTIN 100 MG CAPSULE PO SCH (21:03)
[2018-09-10] MEDS: ARFORMOTEROL 15 MCG/2 ML NEB RESP TX SCH ×2 (07:43→19:14)
[2018-09-10] MEDS: BUDESONIDE 0.5 MG/2 ML NEB RESP TX SCH ×2 (07:43→19:14)
[2018-09-10] MEDS: INSULIN LISPRO 100 UNIT/ML SUBCUT SCH ×4 (07:55→21:37)
[2018-09-10] MEDS: VALSARTAN 160 MG TABLET PO SCH (08:14)
[2018-09-10] MEDS: HEPARIN 5,000 UNIT/1 ML VIAL SUBCUT SCH ×2 (08:14→21:37)
[2018-09-10] MEDS: ASPIRIN EC 325 MG TABLET PO SCH (08:14)
[2018-09-10] MEDS: PANTOPRAZOLE 40 MG TABLET PO SCH (08:14)
[2018-09-10] MEDS: METOPROLOL TARTRATE 25 MG TABLET PO SCH ×2 (08:14→21:35)
[2018-09-10] MEDS: GABAPENTIN 100 MG CAPSULE PO SCH (21:37)
[2018-09-11] MEDS: ARFORMOTEROL 15 MCG/2 ML NEB RESP TX SCH (07:41)
[2018-09-11] MEDS: BUDESONIDE 0.5 MG/2 ML NEB RESP TX SCH (07:41)
[2018-09-11] MEDS: INSULIN LISPRO 100 UNIT/ML SUBCUT SCH ×2 (07:56→11:28)
[2018-09-11] MEDS: HEPARIN 5,000 UNIT/1 ML VIAL SUBCUT SCH (09:13)
[2018-09-11] MEDS: ASPIRIN EC 325 MG TABLET PO SCH (09:13)
[2018-09-11] MEDS: PANTOPRAZOLE 40 MG TABLET PO SCH (09:13)
[2018-09-11] MEDS: VALSARTAN 160 MG TABLET PO SCH (09:13)
[2018-09-11] MEDS: METOPROLOL TARTRATE 25 MG TABLET PO SCH (09:14)
[2018-09-11 12:31] VITALS: BP 145/71
== END 2018-09-11 15:41 | DRG 291 ==
LOC: N.ED 17:57 → N.EDINP 21:50 → SUATTDRO 21:50 → N.TELES 08-29 00:30 → N.CC 08-30 00:04 → N.5E 08-31 21:07
PROVIDERS: ADMIT Internal Medicine Cardiovascular Disease; ATTEND Internal Medicine